=== PATIENT | female | born 1995 | race Caucasian/White ===

== ENCOUNTER → 2016-11-10 | Outpatient (CLI) | payer MEDICAID ==
[~2016-11-10] MED LIST: CODE-54 PO; DCS100C PO; DOCU-143 PO; HYDR-3729 PO; IBUP-1773 PO; Ibuprofen PO; PREN-115 PO
--- OUTSIDE RECORDS SUMMARY | 2016-11-10 11:06 | XMS REPORT | Continuity of Care Document ---
Author Author [facility] Organization [facility] Address Unknown Phone Unavailable Care Team Providers Care Magneto Repairer Name Role Phone [facility] [place] Insurance Providers Payer Name Policy Number Subscriber Name Relationship [facility] [employer] [id number] Fang Sánchez 19 Self / Same As Patient Advance Directives Directive Response Recorded Date/Time Advance Directives No 09/20/14 1:29am Organ Donor Yes 09/20/14 1:29am Resuscitation Status Full Code 09/20/14 1:29am Problems Medical Problems Problem Onset Date Status Cervical strain Unknown Active Medications Medication Dose Route Sig Days/Qty Instructions Order Date Discontinued Date Status Docusate Sodium 100 Mg PO TWICE A DAY 20 Qty 06/25/14 09/20/14 Discontinued [Ibuprofen] 600 Mg PO EVERY 6 HOURS 30 Qty 06/25/14 09/20/14 Discontinued Acetaminophen/Codeine Phosphate 1-2 Tab PO Q 4-6 HOURS PRN PAIN 20 Qty NEEDED FOR PAIN 06/25/14 09/20/14 Discontinued Social History Social History Problem Response Recorded Date/Time Alcohol Use Denies Use 09/20/2014 1:29am Recreational Drug Use No 09/20/2014 1:29am Recent Foreign Travel No 06/22/2014 8:50pm Recent Infectious Disease Exposure No 06/22/2014 8:50pm Hospitalization with Isolation Denies 06/25/2014 1:41pm Sexually Transmitted Disease No 09/20/2014 1:29am HIV/AIDS No 09/20/2014 1:29am Smoking Status Never a Smoker 09/20/2014 1:29am Query Response Start Date Stop Date Smoking Status Never a Smoker Hospital Discharge Instructions No hospital discharge instructions. Plan of Care No plan of care. Functional Status No functional status results. Allergies, Adverse Reactions, Alerts Allergen Type Severity Reaction Status Last Updated No Known Allergies ([id number]) Allergy Unknown Active 06/22/14 Immunizations Name Given Type Hepatitis B Yes Historical Tetanus Booster (TDap) Less than 5yrs Historical Vital Signs Acute Vital Signs Vital Response Date/Time Temperature (Fahrenheit) 98.4 degrees F (97.6 - 99.5) Temperature (Calculated Celsius) 36.46975 degrees C (36.4 - 37.5) Temperature Source Temporal Pulse Rate (adult) 98 bpm (60 - 90) Respiratory Rate 18 bpm (12 - 24) O2 Sat by Pulse Oximetry 99 % (88 - 100) Blood Pressure 130/70 mm Hg Pain Pain Intensity 7 Height (Feet) 5 feet Height (Inches) 0 inches Height (Calculated Centimeters) 152.426654 cm Weight (Pounds) 140 pounds Weight (Calculated Kilograms) 63.294896 kilograms Calculated BMI 27.34 Results No known relevant diagnostic tests, laboratory data and/or discharge summary. Procedures No known history of procedures. Encounters Encounter Location Date/Time Departed Emergency Room Via [facility] 09/20/14 1:19am Recent Diagnosis
--- NOTE | 2016-11-10 14:15 | Diagnostic Imaging Report ---
OB ultrasound. INDICATION: Dating. FINDINGS: There is an intrauterine with the embryo at 10 weeks and 0 days by size. There is unfortunately no cardiac activity seen compatible with embryo demise. IMPRESSION: Intrauterine with no cardiac activity compatible with embryo demise. The findings were discussed with Dr. Beth by Dr. Hodges at the time of dictation. Dictated by: Dictated on workstation # [id number]
== END ==
LOC: RAD 11:03
PROVIDERS: ATTEND Family Medicine
DX: Z36 Encounter for antenatal screening of mother (principal)
CPT/HCPCS: 76801

== ENCOUNTER 2016-11-11 12:00 | Day surgery (SDC) | payer MEDICAID ==
[~2016-11-11] VITALS: Ht 154.9 cm; Wt 70.3 kg
[~2016-11-11 12:00] MED LIST changes: -DOCU-143 PO; -HYDR-3729 PO; -IBUP-1773 PO; -PREN-115 PO
--- OUTSIDE RECORDS SUMMARY | 2016-11-11 12:05 | XMS REPORT | Continuity of Care Document ---
Author Author [facility] Organization [facility] Address Unknown Phone Unavailable Care Team Providers Care Meat Seafood Associate Name Role Phone [facility] [place] Insurance Providers Payer Name Policy Number Subscriber Name Relationship [facility] [employer] [id number] Fang Sánchez 19 Self / Same As [...] Reaction Status Last Updated No Known Allergies ([id number]) Allergy Unknown Active 06/22/14 Immunizations Name Given Type Hepatitis B Yes Historical Tetanus Booster (TDap) Less than 5yrs Historical Vital Signs Acute Vital Signs Vital Response Date/Time Temperature (Fahrenheit) 98.4 degrees F (97.6 - 99.5) Temperature (Calculated Celsius) 36.19223 degrees C (36.4 - 37.5) Temperature Source Temporal Pulse Rate (adult) 98 bpm (60 - 90) Respiratory Rate 18 bpm (12 - 24) O2 Sat by Pulse Oximetry 99 % (88 - 100) Blood Pressure 130/70 mm Hg Pain Pain Intensity 7 Height (Feet) 5 feet Height (Inches) 0 inches Height (Calculated Centimeters) 152.354457 cm Weight (Pounds) 140 pounds Weight (Calculated Kilograms) 63.756323 kilograms Calculated BMI 27.34 Results No known relevant diagnostic tests, laboratory data and/or discharge summary. Procedures No known history of procedures. Encounters Encounter Location Date/Time Departed Emergency Room Via [facility] 09/20/14 1:19am Recent Diagnosis
--- OUTSIDE RECORDS SUMMARY | 2016-11-11 12:06 | XMS REPORT | Continuity of Care Document ---
Author Author [facility] Organization [facility] Address Unknown Phone Unavailable Care Team Providers Care Trichologist Name Role Phone [facility] [place] Insurance Providers Payer Name Policy Number Subscriber Name Relationship [facility] [employer] [id number] Fang Sánchez 19 Self / Same As [...] Reaction Status Last Updated No Known Allergies ([id number]) Allergy Unknown Active 06/22/14 Immunizations Name Given Type Hepatitis B Yes Historical Tetanus Booster (TDap) Less than 5yrs Historical Vital Signs Acute Vital Signs Vital Response Date/Time Temperature (Fahrenheit) 98.4 degrees F (97.6 - 99.5) Temperature (Calculated Celsius) 36.30963 degrees C (36.4 - 37.5) Temperature Source Temporal Pulse Rate (adult) 98 bpm (60 - 90) Respiratory Rate 18 bpm (12 - 24) O2 Sat by Pulse Oximetry 99 % (88 - 100) Blood Pressure 130/70 mm Hg Pain Pain Intensity 7 Height (Feet) 5 feet Height (Inches) 0 inches Height (Calculated Centimeters) 152.776208 cm Weight (Pounds) 140 pounds Weight (Calculated Kilograms) 63.402359 kilograms Calculated BMI 27.34 Results No known relevant diagnostic tests, laboratory data and/or discharge summary. Procedures No known history of procedures. Encounters Encounter Location Date/Time Departed Emergency Room [facility] 09/20/14 1:19am Recent Diagnosis
[2016-11-11] MEDS ORDERED: LIDOCAINE JELLY 2% (XYLOCAINE) 5 ML TUBE ONE (12:28)
[2016-11-11] MEDS ORDERED: proPOfol 200 MG/20 ML (DIPRIVAN) VIAL IV ONE (12:28)
[2016-11-11] MEDS ORDERED: ONDANSETRON 4 MG/2 ML (SDV) Z0FRAN ONE (12:28)
[2016-11-11] MEDS ORDERED: LIDOCAINE PF 2% 10 ML (XYLOCAINE) AMP ONE (12:28)
[2016-11-11] MEDS ORDERED: ROCURONIUM 50 MG/5 ML (ZEMURON) VIAL IV ONE (12:28)
[2016-11-11] MEDS ORDERED: MIDAZOLAM 2 MG/2 ML (VERSED) VIAL ONE (12:28)
[2016-11-11] MEDS ORDERED: LACTATED RINGERS 1,000 ML IV ONE (12:28)
[2016-11-11] MEDS ORDERED: fentaNYL INJECTION 100 MCG/2 ML AMP ONE (12:29)
[2016-11-11] MEDS ORDERED: DOXYCYCLINE 100 MG (VIBRAMYCIN) TABLET PO ONE (12:30)
[2016-11-11] MEDS: LACTATED RINGERS 1,000 ML IV PRN ×2 (12:32→13:30)
[2016-11-11] MEDS ORDERED: PREN-115 PO (12:34)
[2016-11-11 12:36] VITALS: BP 117/79
--- NOTE | 2016-11-11 13:00 | Progress Note-Pre Operative ---
Pre-Operative Progress Note H&P Reviewed The H&P was reviewed, patient examined and no changes noted. Date H&P Reviewed: Nov 11, 2016 Time H&P Reviewed: 13:00 Pre-Operative Diagnosis: Missed MAXIME YEPEZ MD Nov 11, 2016 13:00
[2016-11-11] MEDS ORDERED: IBUP-1773 PO (13:02)
[2016-11-11] MEDS ORDERED: HYDR-3729 PO (13:02)
[2016-11-11] MEDS ORDERED: DOCU-143 PO (13:02)
[2016-11-11] MEDS ORDERED: D5 LR IV SOLUTION 1,000 ML IV SCH (13:03)
--- NOTE | 2016-11-11 13:03 | Discharge Inst-Women's Service ---
Discharge Inst-Women's Serv Depart Medication/Instructions New, Converted or Re-Newed RX: RX on Chart Final Diagnosis Missed Consults/Follow Up Additional Follow Up: Yes Orders/Referrals [address] Clancy (appt is already made) Activity Activity: Activity as Tolerated Driving Instructions: No Driving for 24 Hours (or while taking narcotic pain medications) NO SMOKING: NO SMOKING Nothing Inside Vagina: No Douching, No [place], No Tampons Diet Discharge Diet: No Restrictions Symptoms to Report to : Bleeding Excessive, Pain Increased, Fever Over 101 Degrees F, Pain/Pressure in Chest, Vaginal Bleeding Increase, Dizziness/Fainting , Nausea/Vomiting, Shortness of Breath For Any Problems or Questions: Contact Your Physician, Go to Emergency Room MAXIME CLANCY MD Nov 11, 2016 13:02
--- NOTE | 2016-11-11 13:07 | OB/GYN Operative Report ---
Operative Report Date of Procedure: November 11, 2016 Preoperative Diagnosis: 21 y/o @ 10wga with missed , Rh+ Postoperative Diagnosis: Same Procedure: Suction dilatation and curettage Surgeon: Maxime Yepez MD Anesthesia: General Estimated Blood Loss: 800 mL Indications for Procedure: This is a 21 y/o G1 who presented to the office at 10wga for consultation for missed , sent by Dr. Beth. Ultrasound dated November 10, 2016 revealed a fetus with no cardiac activity, consistent with 10wga. She was counseled on risks, benefits and alternatives and elected to proceed with the procedure. Findings: Normal appearing external genitalia. Products of conception removed consistent with gestational age. Procedure: The patient was taken to the operating room with IV fluids running. Sequential compression devices were placed on her bilateral lower extremities. General anesthesia was obtained without difficulty. She was positioned in the dorsal lithotomy position with the use of Yellofin stirrups. She was prepped and draped in the typical sterile fashion. The bladder was drained with a straight in-and-out catheterization yielding 100 cc of urine. A speculum was placed in the vagina. A single tooth tenaculum was placed on the anterior lip of the cervix. The cervix was dilated with Henderson dilators to a level of 27 Henderson. A 9mm curved suction curette was inserted into the uterine cavity and activated; products of conception were noted and the curette was slowly removed while turning it gently both clockwise and counterclockwise. This was repeated until no further products of conception were noted. A medium sharp curette was then introduced into the uterine cavity and the uterine cavity was gently curetted in a clockwise, circumferential fashion until a gritty feeling was noted. All instruments were removed from the uterus. Minimal bleeding was noted. The tenaculum was removed and the tenaculum sites were hemostatic. All instruments were removed from the vagina at this point. Instrument counts were correct. The patient was awakened from anesthesia without difficulty. She was taken to recovery in stable condition. Specimens: Products of conception Complications: None Disposition: Home stable MAXIME YEPEZ MD Nov 11, 2016 13:07
[2016-11-11] MEDS ORDERED: KETOROLAC 30 MG/ML VIAL IVP ONE (13:15)
[2016-11-11] MEDS ORDERED: ONDANSETRON 4 MG/2 ML (SDV) Z0FRAN IVP PRN (13:15)
[2016-11-11] MEDS ORDERED: morphine INJ 10 MG/ML 1ML (SYR OR VIAL) ONE (13:35)
[2016-11-11] MEDS ORDERED: KETOROLAC 30 MG/ML VIAL ONE (13:35)
[2016-11-11] MEDS ORDERED: SEVOFLURANE (ULTANE) 15 ML INHAL SOLN ONE (13:55)
[2016-11-11] MEDS ORDERED: morphine INJ 10 MG/ML 1ML (SYR OR VIAL) IVP PRN (14:00)
[2016-11-11] MEDS ORDERED: DOXYCYCLINE 100 MG (VIBRAMYCIN) TABLET PO NR (14:00)
[2016-11-11] MEDS ORDERED: MEPERIDINE (DEMEROL) INJ 50 MG/ML IVP PRN (14:00)
[2016-11-11 14:30] VITALS: BP 112/73
[2016-11-11 15:00] VITALS: BP 107/75
[2016-11-11 15:30] VITALS: BP 107/80
== END 2016-11-11 15:38 | disposition home or self-care (01) ==
LOC: SDC 12:00
PROVIDERS: ATTEND Obstetrics & Gynecology
DX: O02.1 Missed abortion (principal)
CPT/HCPCS: 87081; 88305

== ENCOUNTER → 2017-03-02 | Outpatient (CLI) | payer MEDICAID ==
[~2017-03-02] MED LIST changes: +DOCU-143 PO; +HYDR-3729 PO; +IBUP-1773 PO; +PREN-115 PO
--- NOTE | 2017-03-02 16:07 | Diagnostic Imaging Report ---
First trimester OB ultrasound. INDICATION: Dating. FINDINGS: There is a normal-appearing single intrauterine . An embryo is seen with cardiac activity at 149 beats per minute. The crown-rump length is at 7 weeks and 3 days. EFREN is 10/16/17. The right ovary is 3.3 x 3.4 x 1.8 CM with normal vascularity. The left ovary is obscured by bowel gas. IMPRESSION: Live single intrauterine . Dictated by: Dictated on workstation # [id number]
== END ==
LOC: RAD 15:42
PROVIDERS: ATTEND Family Medicine
DX: Z36 Encounter for antenatal screening of mother (principal); Z3A.01 Less than 8 weeks gestation of pregnancy
CPT/HCPCS: 76801

== ENCOUNTER 2017-05-26 00:18 | Outpatient (CLI) | payer MEDICAID ==
[~2017-05-26] VITALS: Ht 152.4 cm; Wt 77.1 kg
[2017-05-26 00:30] VITALS: BP 132/72
[2017-05-26 00:43] LABS: BILIRUBIN,URINE NEGATIVE (NEGATIVE); KETONES,URINE NEGATIVE (NEGATIVE); LEUKOCYTE ESTERASE ,URINE 1+ (NEGATIVE); NITRITE,URINE NEGATIVE (NEGATIVE); PH,URINE 8 (5-9); PROTEIN,URINE NEGATIVE (NEGATIVE); UROBILINOGEN,URINE NORMAL (NORMAL)
[2017-05-26 01:01] LABS: WBC,URINE RARE /HPF
[2017-05-26 02:30] VITALS: BP 134/60
--- NOTE | 2017-05-26 07:13 | Diagnostic Imaging Report ---
INDICATION: Second trimester bleeding. TECHNIQUE: Multiple, limited real-time grayscale images were obtained of the gravid uterus. CORRELATION STUDY: 03/02/20 FINDINGS: Fetus is currently in a breech presentation. Normal amount of amniotic fluid appears to be present. The placenta is posterior without evidence for previa. No abnormal perigestational fluid collections. cardiac activity 146 beats per minute. IMPRESSION: 1. Posteriorly placenta appears unremarkable. No evidence for previa. No abnormal perigestational fluid collections. Breech presentation noted. A preliminary report was provided by [employer]. Dictated by: Dictated on workstation # [id number]
--- NOTE | 2017-05-29 11:12 | Physician Query-Final Dx ---
RAFAEL SWAIN 05/29/17 1112: Clinic Account Progress/Dx Physician Query: Please give diagnosis Date of Service May 26, 2017 at 00:18 JESÚS GERARDO MD 06/19/17 1317: Clinic Account Progress/Dx DIAGNOSIS: Diagnosis Vaginal bleeding during Abdominal pain RAFAEL SWAIN May 29, 2017 11:12 JESÚS GERARDO MD Jun 19, 2017 13:17
== END 2017-05-26 03:28 ==
LOC: WSo 00:18 → LDRP 00:18 → WSo 03:28
PROVIDERS: ATTEND Family Medicine
DX: O20.9 Hemorrhage in early pregnancy, unspecified (principal); Z3A.19 19 weeks gestation of pregnancy
CPT/HCPCS: 76815; 81000; 99213

== ENCOUNTER → 2017-06-01 | Outpatient (CLI) | payer MEDICAID ==
--- NOTE | 2017-06-01 12:55 | Diagnostic Imaging Report ---
INDICATION: survey. TECHNIQUE: Multiple real-time grayscale images were obtained over the gravid uterus. COMPARISON: None 03/02/2017 and 05/26/2017. FINDINGS: The previous OB ultrasound exam of 05/26/2017 noted a single live fetus approximately 19 weeks 4 days gestation in breech presentation. On this exam, the fetus is again identified. The fetus is in variable presentation. heart motion was noted at rate of 143 BPM was recorded. There were no abnormalities identified but the spine and four-chamber heart view were less than optimal due to lie. I would recommend that a short-term (4-6 week) followup exam be performed for further study. The placenta is posterior and there is no previa. The amniotic fluid volume is within normal limits. The growth parameters are fairly uniform and have progressed as expected since the initial exam of 03/02/2017. The cervix was identified and measures 5 cm in length. IMPRESSION: 1. There is a single live fetus approximately 20 weeks 2 days gestation +/- 1 week. The EDC remains October 16, 2017. 2. There were no abnormalities identified but the spine and four-chamber heart view were poorly imaged. Recommendations as above. 3. The growth parameters have progressed as expected since the prior exam. Biometrical measurements are as follows: Biparietal 4.87 cm, age 20 weeks 6 days. Head circumference 17.73 cm, age 20 weeks 2 days. Abdominal circumference 16.4 cm, age 21 weeks 4 days. Femur length 3.32 cm, age 20 weeks 3 days. Sonographic estimate age: 20 weeks 6 days. Sonographic estimated date of delivery: 10/13/2017. Estimated Weight: 384 gm (+/- 56 gm). LMP percentile: 71%. heart rate: 143 beats per minute. number: 1 of 1. Dictated by: Dictated on workstation # [id number]
== END ==
LOC: RAD 11:32
PROVIDERS: ATTEND Family Medicine
DX: Z36 Encounter for antenatal screening of mother (principal); Z3A.20 20 weeks gestation of pregnancy
CPT/HCPCS: 76805

== ENCOUNTER → 2017-07-04 | Outpatient (CLI) | payer MEDICAID ==
--- NOTE | 2017-07-04 11:23 | Diagnostic Imaging Report ---
INDICATION: Followup four-chamber view and spine. TECHNIQUE: Multiple real-time grayscale images were obtained over the gravid uterus. COMPARISON: 06/01/2017 FINDINGS: The heart rate is 139 beats per minute. The cervix is 4.3 cm in length and appears closed. The placenta is posterior. No placenta previa. The four-chamber view and the spine appear unremarkable. IMPRESSION: The four-chamber view and the spine appear unremarkable. Completed survey. Dictated by: Dictated on workstation # [id number]
== END ==
LOC: RAD 09:37
PROVIDERS: ATTEND Family Medicine
DX: Z36 Encounter for antenatal screening of mother (principal); Z3A.00 Weeks of gestation of pregnancy not specified
CPT/HCPCS: 76816

== ENCOUNTER 2017-10-05 23:15 | Outpatient (CLI) | payer MEDICAID ==
[~2017-10-05] VITALS: Ht 152.4 cm; Wt 84.4 kg
[2017-10-05 23:27] VITALS: BP 131/90
[2017-10-05 23:52] LABS: BILIRUBIN,URINE NEGATIVE (NEGATIVE); CLARITY,URINE SLIGHTLY CLOUDY; COLOR,URINE YELLOW; GLUCOSE, URINE (UA) NEGATIVE (NEGATIVE); KETONES,URINE NEGATIVE (NEGATIVE); LEUKOCYTE ESTERASE ,URINE 3+ (NEGATIVE); NITRITE,URINE NEGATIVE (NEGATIVE); PH,URINE 6 (5-9); PROTEIN,URINE 1+ (NEGATIVE); UROBILINOGEN,URINE NORMAL (NORMAL)
[2017-10-05] MEDS ORDERED: FERR-84 PO (23:52)
[2017-10-06 00:10] LABS: BACTERIA,URINE LARGE /HPF; WBC,URINE 50-100 /HPF
--- NOTE | 2017-10-12 15:06 | Physician Query-Final Dx ---
RAFAEL SWAIN 10/12/17 1506: Clinic Account Progress/Dx Physician Query: Please give diagnosis Date of Service Oct 05, 2017 at 23:15 KAELYN GUTIERREZ MD 10/18/17 0733: Clinic Account Progress/Dx DIAGNOSIS: Diagnosis 1. Uterine irritability, nonlabor 2. Intrauterine at 38 weeks RAFAEL SWAIN Oct 12, 2017 15:06 KAELYN GUTIERREZ MD Oct 18, 2017 07:33
== END 2017-10-06 01:55 | disposition home or self-care (01) ==
LOC: WSo 23:15 → LDRP 23:16 → WSo 10-06 01:55
PROVIDERS: ATTEND Family Medicine
DX: O99.89 Other specified diseases and conditions complicating pregnancy, childbirth and the puerperium (principal); N85.8 Other specified noninflammatory disorders of uterus; Z3A.38 38 weeks gestation of pregnancy
CPT/HCPCS: 81000; 87088; 99214

== ENCOUNTER 2017-10-08 18:39 | Outpatient (CLI) | payer MEDICAID ==
[~2017-10-08] VITALS: Ht 152.4 cm; Wt 85.4 kg
[~2017-10-08 18:39] MED LIST changes: +FERR-84 PO
[2017-10-08 18:51] VITALS: BP 133/87
[2017-10-08 19:11] LABS: BILIRUBIN,URINE NEGATIVE (NEGATIVE); CLARITY,URINE SLIGHTLY CLOUDY; COLOR,URINE YELLOW; GLUCOSE, URINE (UA) NEGATIVE (NEGATIVE); KETONES,URINE NEGATIVE (NEGATIVE); LEUKOCYTE ESTERASE ,URINE 3+ (NEGATIVE); NITRITE,URINE NEGATIVE (NEGATIVE); PH,URINE 6 (5-9); PROTEIN,URINE 1+ (NEGATIVE); UROBILINOGEN,URINE NORMAL (NORMAL)
[2017-10-08 19:46] LABS: BACTERIA,URINE LARGE /HPF; WBC,URINE TNTC /HPF
[2017-10-08 19:47] LABS: URINE OTHER FEW SPERM /HPF
[2017-10-08] MEDS ORDERED: cefTRIAXone 1 GM (ROCEPHIN) VIAL IM ONE (21:00)
[2017-10-08] MEDS ORDERED: LIDOCAINE 1% INJ 20 ML (XYLOCAINE) VIAL INJ ONE (21:00)
--- NOTE | 2017-10-12 15:36 | Physician Query-Final Dx ---
RAFAEL SWAIN 10/12/17 1536: Clinic Account Progress/Dx Physician Query: Please give diagnosis Date of Service Oct 08, 2017 at 18:39 BULMARO RUFFIN DO 10/12/17 1717: Clinic Account Progress/Dx DIAGNOSIS: Diagnosis Threatened Term Labor RAFAEL SWAIN Oct 12, 2017 15:36 BULMARO RUFFIN DO Oct 12, 2017 17:17
== END 2017-10-08 21:52 | disposition home or self-care (01) ==
LOC: LDRP 18:39 → WSo 18:39
PROVIDERS: ATTEND Family Medicine
DX: O47.1 False labor at or after 37 completed weeks of gestation (principal); Z3A.38 38 weeks gestation of pregnancy
CPT/HCPCS: 81000; 87088; 96372; 99214

== ENCOUNTER 2017-10-11 05:56 | Inpatient (IN) | payer MEDICAID ==
[~2017-10-11] VITALS: Ht 152.4 cm; Wt 85.3 kg
[2017-10-11] VITALS (41 sets, daily range): BP systolic 91–152; BP diastolic 51–99
--- OUTSIDE RECORDS SUMMARY | 2017-10-11 05:59 | XMS REPORT ---
Author Author SARMAD FLOYD [facility] Address [address] [place] [address] Care Team Providers Care Loader Name Role Phone MARIELLE FLOYDHANY Unavailable PROBLEMS Type Condition ICD9-CM Code QQI46-JG Code Onset Dates Condition Status SNOMED Code Problem Obesity E66.9 Active 276662112 Assessment Encounter for IUD removal Z30.432 Jun, Active 666720609 Assessment Presence of (intrauterine) contraceptive device Z97.5 Jun, Active 555262147 Assessment Procedure and treatment not carried out for other reasons Z53.8 Jun, Active 696859984 ALLERGIES Substance Reaction Event Type Date Status N.K.D.A. Unknown Non Drug Allergy Jun, Unknown SOCIAL HISTORY No smoking Hx information available PLAN OF CARE VITAL SIGNS Height 60 in 2016-07-01 Weight 145.1 lbs 2016-07-01 Heart Rate 88 bpm 2016-07-01 Respiratory Rate 16 2016-07-01 BMI 28.33 kg/m2 2016-07-01 Blood pressure systolic 110 mmHg 2016-07-01 Blood pressure diastolic 70 mmHg 2016-07-01 MEDICATIONS Medication Instructions Dosage Frequency Start Date End Date Duration Status Ortho Tri-Cyclen (28) 0.18/0.215/0.25 MG-35 MCG Orally Once a day 1 tablet 24h Jun, 28 day(s) Active RESULTS Name Result Date Reference Range TEST, URINE (IN HOUSE) 2016-07-01 RESULTS negative Lot # [id number] Control + Exp date 12/2017 Ultrasound : Pelvic, COMPLETE (REFLEX CPT-22020) 2016-07-07 PROCEDURES Procedure Date Ordered Related Diagnosis Body Site URINE TEST Jul 01, 2016 Office Visit, Est Pt., Level 3 Jul 01, 2016 IMMUNIZATIONS No Known Immunizations
--- OUTSIDE RECORDS SUMMARY | 2017-10-11 05:59 | XMS REPORT ---
Author RONI Muller Organization [employer] Address Unknown Phone Unavailable Care Team Providers Care Herbarium Worker Name Role Phone RONI JEAN CP Unavailable Allergies No Known Allergies Problems Problem Type Condition Code Onset Dates Condition Status Problem Obesity E66.9 Active Medications No Known Medications Results No Known Results Summary Purpose [employer] Submission
--- OUTSIDE RECORDS SUMMARY | 2017-10-11 06:00 | XMS REPORT ---
Author SARMAD Meza [facility] [employer] Address Unknown Phone Unavailable Care Team Providers Care Radioisotope Production Operator Name Role Phone SARMAD FLOYD CP Unavailable Allergies, Adverse Reactions, Alerts Substance Reaction Event Type N.K.D.A. Info Not Available Non Drug Allergy Problems Problem Type Condition Code Onset Dates Condition Status Assessment Encounter for IUD removal Z30.432 Active Problem Obesity E66.9 Active Medications Medication Code System Code Instructions Start Date End Date Status Dosage Ortho Tri-Cyclen (28) [facility] [id number] 0.18/0.215/0.25 MG-35 MCG Orally Once a day Jul 01, 2016 1 tablet Procedures Procedure Coding System Code Date REMOVE INTRAUTERINE DEVICE CPT-4 27204 Jul 26, 2016 URINE TEST CPT-4 84073 Jul 26, 2016 Vital Signs Date/Time: Jul 26, 2016 Cardiac Monitoring Heart Rate 84 bpm Weight 146.4 lbs Height 60 in BMI 28.59 Index Blood Pressure Diastolic 72 mmHg Blood Pressure Systolic 118 mmHg Results Name Result Date Reference Range Unit Abnormality Flag TEST, URINE (IN HOUSE) ----RESULTS Negative [id number] ----Lot # [id number] ----Control + [id number] ----Exp date [id number] Summary Purpose [employer] Submission
--- OUTSIDE RECORDS SUMMARY | 2017-10-11 06:00 | XMS REPORT ---
Author Author RONI JEAN [facility] Address [address] [place] [address] Care Team Providers Care Teacher Selection Specialist Name Role Phone RONI JEAN Unavailable PROBLEMS Type Condition ICD9-CM Code [id number] Code Onset Dates Condition Status SNOMED Code Problem Obesity E66.9 Active [id number] ALLERGIES Unknown Allergies SOCIAL HISTORY No smoking Hx information available PLAN OF CARE VITAL SIGNS MEDICATIONS Unknown Medications RESULTS Name Result Date Reference Range TEST, URINE (IN HOUSE) 2016-11-01 RESULTS Positive Lot # [id number] Control + Exp date 01/2018 PROCEDURES Procedure Date Ordered Related Diagnosis Body Site URINE TEST Nov 01, 2016 IMMUNIZATIONS No Known Immunizations
--- OUTSIDE RECORDS SUMMARY | 2017-10-11 06:03 | XMS REPORT | Continuity of Care Document ---
Author Author [facility] Organization [facility] Address Unknown Phone Unavailable Allergies Active Description Code Type Severity Reaction Onset Reported/Identified Relationship to Patient Clinical Status Yes No Known Allergies [id number] Drug Allergy Unknown N/A 06/22/2014 Medications There is no data. Problems Date Dx Coded Attending Type Code Diagnosis Diagnosed By 05/28/2008 V70.3 SPORTS/SCHOOL EXAM 05/28/2008 V70.3 SPORTS/SCHOOL EXAM 05/28/2008 V70.3 SPORTS/SCHOOL EXAM 05/28/2008 V70.3 SPORTS/SCHOOL EXAM 05/28/2008 V70.3 SPORTS/SCHOOL EXAM 05/28/2008 KELLE HUBBARD APRN V70.3 SPORTS/SCHOOL EXAM 05/28/2008 TIM SHARMA DIEGO A V70.3 SPORTS/SCHOOL EXAM 05/28/2008 TIM SHARMA DIEGO A V70.3 SPORTS/SCHOOL EXAM 05/28/2008 TIM SHARMA DIEGO A V70.3 SPORTS/SCHOOL EXAM 05/28/2008 JEAN DO, RONI K V70.3 SPORTS/SCHOOL EXAM 05/28/2008 JEAN DO, RONI K V70.3 SPORTS/SCHOOL EXAM 05/28/2008 JEAN DO, RONI K V70.3 SPORTS/SCHOOL EXAM 05/28/2008 JEAN DO, RONI K V70.3 SPORTS/SCHOOL EXAM 05/28/2008 JEAN DO, RONI K V70.3 SPORTS/SCHOOL EXAM 05/28/2008 JEAN DO, RONI K V70.3 SPORTS/SCHOOL EXAM 05/28/2008 MATT ACEVEDO, KAELYN Robertson V70.3 SPORTS/SCHOOL EXAM 05/28/2008 KAELYN GUTIERREZ MD V70.3 SPORTS/SCHOOL EXAM 05/28/2008 MATT ACEVEDO, KAELYN Robertson V70.3 SPORTS/SCHOOL EXAM 05/28/2008 V70.3 SPORTS/SCHOOL EXAM 05/28/2008 MATT ACEVEDO, KAELYN Robertson V70.3 SPORTS/SCHOOL EXAM 05/28/2008 MATT ACEVEDO, KAELYN Robertson V70.3 SPORTS/SCHOOL EXAM 05/28/2008 EVERETT ACEVEDO, SARMAD Horan V70.3 SPORTS/SCHOOL EXAM 05/28/2008 MATT ACEVEDO, KAELYN Robertson V70.3 SPORTS/SCHOOL EXAM 05/28/2008 EVERETT ACEVEDO, SARMAD Horan V70.3 SPORTS/SCHOOL EXAM 05/28/2008 MATT ACEVEDO, KAELYN Robertson V70.3 SPORTS/SCHOOL EXAM 05/28/2008 DIEGO DUMONT APRN V70.3 SPORTS/SCHOOL EXAM 05/28/2008 DIEGO DUMONT APRN A V70.3 SPORTS/SCHOOL EXAM 05/28/2008 DIEGO DUMONT APRN A V70.3 SPORTS/SCHOOL EXAM 05/28/2008 JARRELL BATES APRN V70.3 SPORTS/SCHOOL EXAM 07/24/2008 706.1 ACNE 07/24/2008 919.4 INSECT BITE NONVENOMOUS OF OTHER MULTIPLE AND UNSPECIFIED SITES WITHOUT INFECTION 07/24/2008 706.1 ACNE 07/24/2008 919.4 INSECT BITE NONVENOMOUS OF OTHER MULTIPLE AND UNSPECIFIED SITES WITHOUT INFECTION 07/24/2008 706.1 ACNE 07/24/2008 919.4 INSECT BITE NONVENOMOUS OF OTHER MULTIPLE AND UNSPECIFIED SITES WITHOUT INFECTION 07/24/2008 706.1 ACNE 07/24/2008 919.4 INSECT BITE NONVENOMOUS OF OTHER MULTIPLE AND UNSPECIFIED SITES WITHOUT INFECTION 07/24/2008 706.1 ACNE 07/24/2008 919.4 INSECT BITE NONVENOMOUS OF OTHER MULTIPLE AND UNSPECIFIED SITES WITHOUT INFECTION 07/24/2008 KELLE HUBBARD APRN R 706.1 ACNE 07/24/2008 KELLE HUBBARD APRN R 919.4 INSECT BITE NONVENOMOUS OF OTHER MULTIPLE AND UNSPECIFIED SITES WITHOUT INFECTION 07/24/2008 DIEGO DUMONT APRN A 706.1 ACNE 07/24/2008 DIEGO DUMONT APRN A 919.4 INSECT BITE NONVENOMOUS OF OTHER MULTIPLE AND UNSPECIFIED SITES WITHOUT INFECTION 07/24/2008 DIEGO DUMONT APRN A 706.1 ACNE 07/24/2008 DIEGO DUMONT APRN A 919.4 INSECT BITE NONVENOMOUS OF OTHER MULTIPLE AND UNSPECIFIED SITES WITHOUT INFECTION 07/24/2008 TIM VACUUM PAN OPERATOR, DIEGO A 706.1 ACNE 07/24/2008 TIM SHARMA DIEGO A 919.4 INSECT BITE NONVENOMOUS OF OTHER MULTIPLE AND UNSPECIFIED SITES WITHOUT INFECTION 07/24/2008 JEAN DO, RONI K 706.1 ACNE 07/24/2008 JEAN DO, RONI K 919.4 INSECT BITE NONVENOMOUS OF OTHER MULTIPLE AND UNSPECIFIED SITES WITHOUT INFECTION 07/24/2008 JEAN DO, RONI K 706.1 ACNE 07/24/2008 JEAN DO, RONI K 919.4 INSECT BITE NONVENOMOUS OF OTHER MULTIPLE AND UNSPECIFIED SITES WITHOUT INFECTION 07/24/2008 JEAN DO, RONI K 706.1 ACNE 07/24/2008 JEAN DO, RONI K 919.4 INSECT BITE NONVENOMOUS OF OTHER MULTIPLE AND UNSPECIFIED SITES WITHOUT INFECTION 07/24/2008 JEAN DO, RONI K 706.1 ACNE 07/24/2008 JEAN DO, RONI K 919.4 INSECT BITE NONVENOMOUS OF OTHER MULTIPLE AND UNSPECIFIED SITES WITHOUT INFECTION 07/24/2008 JEAN DO, RONI K 706.1 ACNE 07/24/2008 JEAN DO, RONI K 919.4 INSECT BITE NONVENOMOUS OF OTHER MULTIPLE AND UNSPECIFIED SITES WITHOUT INFECTION 07/24/2008 JEAN DO, RONI K 706.1 ACNE 07/24/2008 JEAN DO, RONI K 919.4 INSECT BITE NONVENOMOUS OF OTHER MULTIPLE AND UNSPECIFIED SITES WITHOUT INFECTION 07/24/2008 KAELYN GUTIERREZ MD 706.1 ACNE 07/24/2008 KAELYN GUTIERREZ MD 919.4 INSECT BITE NONVENOMOUS OF OTHER MULTIPLE AND UNSPECIFIED SITES WITHOUT INFECTION 07/24/2008 KAELYN GUTIERREZ MD6.1 ACNE 07/24/2008 KAELYN GUTIERREZ MD 919.4 INSECT BITE NONVENOMOUS OF OTHER MULTIPLE AND UNSPECIFIED SITES WITHOUT INFECTION 07/24/2008 KAELYN GUTIERREZ MD 706.1 ACNE 07/24/2008 KAELYN GUTIERREZ MD 919.4 INSECT BITE NONVENOMOUS OF OTHER MULTIPLE AND UNSPECIFIED SITES WITHOUT INFECTION 07/24/2008 706.1 ACNE 07/24/2008 919.4 INSECT BITE NONVENOMOUS OF OTHER MULTIPLE AND UNSPECIFIED SITES WITHOUT INFECTION 07/24/2008 KAELYN GUTIERREZ MD 706.1 ACNE 07/24/2008 KAELYN GUTIERREZ MD 919.4 INSECT BITE NONVENOMOUS OF OTHER MULTIPLE AND UNSPECIFIED SITES WITHOUT INFECTION 07/24/2008 KAELYN GUTIERREZ MD 706.1 ACNE 07/24/2008 KAELYN GUTIERREZ MD 919.4 INSECT BITE NONVENOMOUS OF OTHER MULTIPLE AND UNSPECIFIED SITES WITHOUT INFECTION 07/24/2008 SARMAD FLOYD MD N 706.1 ACNE 07/24/2008 SARMAD FLOYD MD N 919.4 INSECT BITE NONVENOMOUS OF OTHER MULTIPLE AND UNSPECIFIED SITES WITHOUT INFECTION 07/24/2008 KAELYN GUTIERREZ MD 706.1 ACNE 07/24/2008 KAELYN GUTIERREZ MD 919.4 INSECT BITE NONVENOMOUS OF OTHER MULTIPLE AND UNSPECIFIED SITES WITHOUT INFECTION 07/24/2008 SARMAD FLOYD MD N 706.1 ACNE 07/24/2008 SARMAD FLOYD MD N 919.4 INSECT BITE NONVENOMOUS OF OTHER MULTIPLE AND UNSPECIFIED SITES WITHOUT INFECTION 07/24/2008 KAELYN GUTIERREZ MD 706.1 ACNE 07/24/2008 KAELYN GUTIERREZ MD 919.4 INSECT BITE NONVENOMOUS OF OTHER MULTIPLE AND UNSPECIFIED SITES WITHOUT INFECTION 07/24/2008 DIEGO DUMONT APRN A 706.1 ACNE 07/24/2008 DIEGO DUMONT APRN A 919.4 INSECT BITE NONVENOMOUS OF OTHER MULTIPLE AND UNSPECIFIED SITES WITHOUT INFECTION 07/24/2008 DIEGO DUMONT APRN A 706.1 ACNE 07/24/2008 DIEGO DUMONT APRN A 919.4 INSECT BITE NONVENOMOUS OF OTHER MULTIPLE AND UNSPECIFIED SITES WITHOUT INFECTION 07/24/2008 DIEGO DUMONT APRN A 706.1 ACNE 07/24/2008 DIEGO DUMONT APRN A 919.4 INSECT BITE NONVENOMOUS OF OTHER MULTIPLE AND UNSPECIFIED SITES WITHOUT INFECTION 07/24/2008 JARRELL BATES APRN 706.1 ACNE 07/24/2008 JARRELL BTAES APRN R 919.4 INSECT BITE NONVENOMOUS OF OTHER MULTIPLE AND UNSPECIFIED SITES WITHOUT INFECTION 11/24/2008 709.9 DERMATOLOGY - NON-INFECTIOUS 11/24/2008 V20.2 Preventive Medicine New Patient Evaluation Childhood 5-11/24/2008 709.9 DERMATOLOGY - NON-INFECTIOUS 11/24/2008 V20.2 Preventive Medicine New Patient Evaluation Childhood -11/24/2008 709.9 DERMATOLOGY - NON-INFECTIOUS 11/24/2008 V20.2 Preventive Medicine New Patient Evaluation Childhood -11/24/2008 709.9 DERMATOLOGY - NON-INFECTIOUS 11/24/2008 V20.2 Preventive Medicine New Patient Evaluation Childhood -11/24/2008 709.9 DERMATOLOGY - NON-INFECTIOUS 11/24/2008 V20.2 Preventive Medicine New Patient Evaluation Childhood -11/24/2008 KELLE HUBBARD APRN R 709.9 DERMATOLOGY - NON-INFECTIOUS 11/24/2008 KELLE HUBBARD APRN R V20.2 Preventive Medicine New Patient Evaluation Childhood -11/24/2008 DIEGO DUMONT APRN A 709.9 DERMATOLOGY - NON-INFECTIOUS 11/24/2008 DIEGO DUMONT APRN A V20.2 Preventive Medicine New Patient Evaluation Childhood -11/24/2008 DIEGO DUMONT APRN A 709.9 DERMATOLOGY - NON-INFECTIOUS 11/24/2008 DIEGO DUMONT APRN A V20.2 Preventive Medicine New Patient Evaluation Childhood -11/24/2008 DIEGO DUMONT APRN A 709.9 DERMATOLOGY - NON-INFECTIOUS 11/24/2008 DIEGO DUMONT APRN A V20.2 Preventive Medicine New Patient Evaluation Childhood -11/24/2008 RONI JEAN DO 709.9 DERMATOLOGY - NON-INFECTIOUS 11/24/2008 RONI JEAN DO V20.2 Preventive Medicine New Patient Evaluation Childhood -11/24/2008 RONI JEAN DO 709.9 DERMATOLOGY - NON-INFECTIOUS 11/24/2008 RONI JEAN DO V20.2 Preventive Medicine New Patient Evaluation Childhood -11/24/2008 JEAN DO, RONI K 709.9 DERMATOLOGY - NON-INFECTIOUS 11/24/2008 JEAN DO, RONI K V20.2 Preventive Medicine New Patient Evaluation Childhood 5-11/24/2008 MIRANDA HARDING, RONI K 709.9 DERMATOLOGY - NON-INFECTIOUS 11/24/2008 MIRANDA HARDING, RONI K V20.2 Preventive Medicine New Patient Evaluation Childhood 5-11/24/2008 MIRANDA HARDING, RONI K 709.9 DERMATOLOGY - NON-INFECTIOUS 11/24/2008 MIRANDA HARDING, RONI K V20.2 Preventive Medicine New Patient Evaluation Childhood 5-11/24/2008 MIRANDA HARDING, RONI K 709.9 DERMATOLOGY - NON-INFECTIOUS 11/24/2008 MIRANDA HARDING, RONI K V20.2 Preventive Medicine New Patient Evaluation Childhood 5-11/24/2008 KAELYN GUTIERREZ MD 709.9 DERMATOLOGY - NON-INFECTIOUS 11/24/2008 KAELYN GUTIERREZ MD V20.2 Preventive Medicine New Patient Evaluation Childhood 5-11/24/2008 KAELYN GUTIERREZ MD 709.9 DERMATOLOGY - NON-INFECTIOUS 11/24/2008 KAELYN GUTIERREZ MD V20.2 Preventive Medicine New Patient Evaluation Childhood 5-11/24/2008 KAELYN GUTIERREZ MD 709.9 DERMATOLOGY - NON-INFECTIOUS 11/24/2008 KAELYN GUTIERREZ MD V20.2 PREVENTIVE MEDICINE NEW PATIENT EVALUATION CHILDHOOD 5-11/24/2008 709.9 DERMATOLOGY - NON-INFECTIOUS 11/24/2008 V20.2 PREVENTIVE MEDICINE NEW PATIENT EVALUATION CHILDHOOD 5-11/24/2008 KAELYN GUTIERREZ MD 709.9 DERMATOLOGY - NON-INFECTIOUS 11/24/2008 KAELYN GUTIERREZ MD V20.2 PREVENTIVE MEDICINE NEW PATIENT EVALUATION CHILDHOOD 5-11/24/2008 KAELYN GUTIERREZ MD 709.9 DERMATOLOGY - NON-INFECTIOUS 11/24/2008 KAELYN GUTIERREZ MD V20.2 PREVENTIVE MEDICINE NEW PATIENT EVALUATION CHILDHOOD 5-11/24/2008 SARMAD FLOYD MD 709.9 DERMATOLOGY - NON-INFECTIOUS 11/24/2008 SARMAD FLOYD MD V20.2 PREVENTIVE MEDICINE NEW PATIENT EVALUATION CHILDHOOD 5-11/24/2008 KAELYN GUTIERREZ MD 709.9 DERMATOLOGY - NON-INFECTIOUS 11/24/2008 KAELYN GUTIERREZ MD V20.2 PREVENTIVE MEDICINE NEW PATIENT EVALUATION CHILDHOOD 5-11/24/2008 SARMAD FLOYD MD N 709.9 DERMATOLOGY - NON-INFECTIOUS 11/24/2008 SARMAD FLOYD MD V20.2 PREVENTIVE MEDICINE NEW PATIENT EVALUATION CHILDHOOD 5-11/24/2008 KAELYN GUTIERREZ MD 709.9 DERMATOLOGY - NON-INFECTIOUS 11/24/2008 KAELYN GUTIERREZ MD V20.2 PREVENTIVE MEDICINE NEW PATIENT EVALUATION CHILDHOOD 5-11/24/2008 DIEGO DUMONT APRN A 709.9 DERMATOLOGY - NON-INFECTIOUS 11/24/2008 DIEGO DUMONT APRN A V20.2 PREVENTIVE MEDICINE NEW PATIENT EVALUATION CHILDHOOD -11/24/2008 DIEGO DUMONT APRN A 709.9 DERMATOLOGY - NON-INFECTIOUS 11/24/2008 DIEGO DUMONT APRN A V20.2 PREVENTIVE MEDICINE NEW PATIENT EVALUATION CHILDHOOD 5-11/24/2008 DIEGO DUMONT APRN A 709.9 DERMATOLOGY - NON-INFECTIOUS 11/24/2008 DIEGO DUMONT APRN A V20.2 PREVENTIVE MEDICINE NEW PATIENT EVALUATION CHILDHOOD -11/24/2008 JARRELL BATES APRN R 709.9 DERMATOLOGY - NON-INFECTIOUS 11/24/2008 JARRELL BATES APRN R V20.2 PREVENTIVE MEDICINE NEW PATIENT EVALUATION CHILDHOOD 5-12/10/2008 311 MO DEPRESSIVE DISORDER NOS 12/10/2008 311 MO DEPRESSIVE DISORDER NOS 12/10/2008 311 MO DEPRESSIVE DISORDER NOS 12/10/2008 311 MO DEPRESSIVE DISORDER NOS 12/10/2008 311 MO DEPRESSIVE DISORDER NOS 12/10/2008 KELLE HUBBARD APRN 311 MO DEPRESSIVE DISORDER NOS 12/10/2008 GORAN DUMONT APRNIDI A 311 MO DEPRESSIVE DISORDER NOS 12/10/2008 DIEGO DUMONT APRN A 311 MO DEPRESSIVE DISORDER NOS 12/10/2008 DIEGO DUMONT APRN A 311 MO DEPRESSIVE DISORDER NOS 12/10/2008 RONI JEAN DO 311 MO DEPRESSIVE DISORDER NOS 12/10/2008 RONI JEAN DO 311 MO DEPRESSIVE DISORDER NOS 12/10/2008 RONI JEAN DO 311 MO DEPRESSIVE DISORDER NOS 12/10/2008 JEAN DO, RONI K 311 MO DEPRESSIVE DISORDER NOS 12/10/2008 JEAN DO, RONI K 311 MO DEPRESSIVE DISORDER NOS 12/10/2008 JEAN DO, RONI K 311 MO DEPRESSIVE DISORDER NOS 12/10/2008 MATT ACEVEDO, KAELYN Robertson 311 MO DEPRESSIVE DISORDER NOS 12/10/2008 KAELYN GUTIERREZ MD 311 MO DEPRESSIVE DISORDER NOS 12/10/2008 KAELYN GUTIERREZ MD 311 MO DEPRESSIVE DISORDER NOS 12/10/2008 311 MO DEPRESSIVE DISORDER NOS 12/10/2008 KAELYN GUTIERREZ MD 311 MO DEPRESSIVE DISORDER NOS 12/10/2008 KAELYN GUTIERREZ MD 311 MO DEPRESSIVE DISORDER NOS 12/10/2008 EVERETT ACEVEDO, SARMAD N 311 MO DEPRESSIVE DISORDER NOS 12/10/2008 KAELYN GUTIERREZ MD 311 MO DEPRESSIVE DISORDER NOS 12/10/2008 SARMAD FLOYD MD N 311 MO DEPRESSIVE DISORDER NOS 12/10/2008 KAELYN GUTIERREZ MD 311 MO DEPRESSIVE DISORDER NOS 12/10/2008 GORAN DUMONT APRNIDI A 311 MO DEPRESSIVE DISORDER NOS 12/10/2008 GORAN DUMONT APRNIDI A 311 MO DEPRESSIVE DISORDER NOS 12/10/2008 GORAN DUMONT APRNIDI A 311 MO DEPRESSIVE DISORDER NOS 12/10/2008 JARRELL BATES APRN 311 MO DEPRESSIVE DISORDER NOS 09/02/2009 465.9 UPPER RESPIRATORY INFECTION ACUTE 09/02/2009 465.9 UPPER RESPIRATORY INFECTION ACUTE 09/02/2009 465.9 UPPER RESPIRATORY INFECTION ACUTE 09/02/2009 465.9 UPPER RESPIRATORY INFECTION ACUTE 09/02/2009 465.9 UPPER RESPIRATORY INFECTION ACUTE 09/02/2009 KELLE HUBBARD APRN 465.9 UPPER RESPIRATORY INFECTION ACUTE 09/02/2009 GORAN DUMONT APRNIDI A 465.9 UPPER RESPIRATORY INFECTION ACUTE 09/02/2009 TIM SHARMA DIEGO A 465.9 UPPER RESPIRATORY INFECTION ACUTE 09/02/2009 GORAN DUMONT APRNIDI A 465.9 UPPER RESPIRATORY INFECTION ACUTE 09/02/2009 JEAN DO, RONI K 465.9 UPPER RESPIRATORY INFECTION ACUTE 09/02/2009 JEAN DO, RONI K 465.9 UPPER RESPIRATORY INFECTION ACUTE 09/02/2009 JEAN DO, RONI K 465.9 UPPER RESPIRATORY INFECTION ACUTE 09/02/2009 JEAN DO, RONI K 465.9 UPPER RESPIRATORY INFECTION ACUTE 09/02/2009 JEAN DO, RONI K 465.9 UPPER RESPIRATORY INFECTION ACUTE 09/02/2009 JEAN DO, RONI K 465.9 UPPER RESPIRATORY INFECTION ACUTE 09/02/2009 KAELYN GUTIERREZ MD 465.9 UPPER RESPIRATORY INFECTION ACUTE 09/02/2009 KAELYN GUTIERREZ MD 465.9 UPPER RESPIRATORY INFECTION ACUTE 09/02/2009 KAELYN GUTIERREZ MD 465.9 UPPER RESPIRATORY INFECTION ACUTE 09/02/2009 465.9 UPPER RESPIRATORY INFECTION ACUTE 09/02/2009 KAELYN GUTIERREZ MD 465.9 UPPER RESPIRATORY INFECTION ACUTE 09/02/2009 KAELYN GUTIERREZ MD 465.9 UPPER RESPIRATORY INFECTION ACUTE 09/02/2009 EVERETT ACEVEDO, SARMAD Horan 465.9 UPPER RESPIRATORY INFECTION ACUTE 09/02/2009 KAELYN GUTIERREZ MD 465.9 UPPER RESPIRATORY INFECTION ACUTE 09/02/2009 EVERETT ACEVEDO, SARMAD Horan 465.9 UPPER RESPIRATORY INFECTION ACUTE 09/02/2009 KAELYN GUTIERREZ MD 465.9 UPPER RESPIRATORY INFECTION ACUTE 09/02/2009 TIM VACUUM PAN OPERATOR, DIEGO A 465.9 UPPER RESPIRATORY INFECTION ACUTE 09/02/2009 TIM VACUUM PAN OPERATOR, DIEGO A 465.9 UPPER RESPIRATORY INFECTION ACUTE 09/02/2009 TIM VACUUM PAN OPERATOR, DIEGO A 465.9 UPPER RESPIRATORY INFECTION ACUTE 09/02/2009 JARRELL BATES APRN R 465.9 UPPER RESPIRATORY INFECTION ACUTE 10/23/2009 486 PNEUMONIA UNSPECIFIED 10/23/2009 486 PNEUMONIA UNSPECIFIED 10/23/2009 486 PNEUMONIA UNSPECIFIED 10/23/2009 486 PNEUMONIA UNSPECIFIED 10/23/2009 486 PNEUMONIA UNSPECIFIED 10/23/2009 KELLE HUBBARD APRN R 486 PNEUMONIA UNSPECIFIED 10/23/2009 TIM VACUUM PAN OPERATOR, DIEGO A 486 PNEUMONIA UNSPECIFIED 10/23/2009 TIM VACUUM PAN OPERATOR, DIEGO A 486 PNEUMONIA UNSPECIFIED 10/23/2009 TIM VACUUM PAN OPERATOR, DIEGO A 486 PNEUMONIA UNSPECIFIED 10/23/2009 JEAN DO, RONI K 486 PNEUMONIA UNSPECIFIED 10/23/2009 JEAN DO, RONI K 486 PNEUMONIA UNSPECIFIED 10/23/2009 JEAN DO, RONI K 486 PNEUMONIA UNSPECIFIED 10/23/2009 JEAN DO, RONI K 486 PNEUMONIA UNSPECIFIED 10/23/2009 JEAN DO, RONI K 486 PNEUMONIA UNSPECIFIED 10/23/2009 JEAN DO, RONI K 486 PNEUMONIA UNSPECIFIED 10/23/2009 MATT ACEVEDO, KAELYN J 486 PNEUMONIA UNSPECIFIED 10/23/2009 MATT ACEVEDO, KAELYN J 486 PNEUMONIA UNSPECIFIED 10/23/2009 MATT ACEVEDO, KAELYN J 486 PNEUMONIA UNSPECIFIED 10/23/2009 486 PNEUMONIA UNSPECIFIED 10/23/2009 MATT ACEVEDO, KAELYN J 486 PNEUMONIA UNSPECIFIED 10/23/2009 MATT ACEVEDO, KAELYN J 486 PNEUMONIA UNSPECIFIED 10/23/2009 EVERETT ACEVEDO, SARMAD N 486 PNEUMONIA UNSPECIFIED 10/23/2009 MATT ACEVEDO, KAELYN J 486 PNEUMONIA UNSPECIFIED 10/23/2009 EVERETT ACEVEDO, SARMAD N 486 PNEUMONIA UNSPECIFIED 10/23/2009 MATT ACEVEDO, KAELYN J 486 PNEUMONIA UNSPECIFIED 10/23/2009 TIM VACUUM PAN OPERATOR, DIEGO A 486 PNEUMONIA UNSPECIFIED 10/23/2009 TIM VACUUM PAN OPERATOR, DIEGO A 486 PNEUMONIA UNSPECIFIED 10/23/2009 TIM VACUUM PAN OPERATOR, DIEGO A 486 PNEUMONIA UNSPECIFIED 10/23/2009 PAULO VACUUM PAN OPERATOR, JARRELL R 486 PNEUMONIA UNSPECIFIED 11/23/2009 V05.3 HEPATITIS VIRAL/ALL 11/23/2009 V05.3 HEPATITIS VIRAL/ALL 11/23/2009 V05.3 HEPATITIS VIRAL/ALL 11/23/2009 V05.3 HEPATITIS VIRAL/ALL 11/23/2009 V05.3 HEPATITIS VIRAL/ALL 11/23/2009 HUBBARD VACUUM PAN OPERATOR, KELLE R V05.3 HEPATITIS VIRAL/ALL 11/23/2009 TIM VACUUM PAN OPERATOR, DIEGO A V05.3 HEPATITIS VIRAL/ALL 11/23/2009 TIM VACUUM PAN OPERATOR, DIEGO A V05.3 HEPATITIS VIRAL/ALL 11/23/2009 TIM VACUUM PAN OPERATOR, DIEGO A V05.3 HEPATITIS VIRAL/ALL 11/23/2009 JEAN DO, RONI K V05.3 HEPATITIS VIRAL/ALL 11/23/2009 JEAN DO, RONI K V05.3 HEPATITIS VIRAL/ALL 11/23/2009 JEAN DO, RONI K V05.3 HEPATITIS VIRAL/ALL 11/23/2009 JEAN DO, RONI K V05.3 HEPATITIS VIRAL/ALL 11/23/2009 JEAN DO, RONI K V05.3 HEPATITIS VIRAL/ALL 11/23/2009 MIRANDA HARDING, RONI K V05.3 HEPATITIS VIRAL/ALL 11/23/2009 MATT ACEVEDO, KAELYN Robretson V05.3 HEPATITIS VIRAL/ALL 11/23/2009 MATT ACEVEDO, KAELYN Robertson V05.3 HEPATITIS VIRAL/ALL 11/23/2009 MATT ACEVEDO, KAELYN Robertson V05.3 HEPATITIS VIRAL/ALL 11/23/2009 V05.3 HEPATITIS VIRAL/ALL 11/23/2009 MATT ACEVEDO, KAELYN Robertson V05.3 HEPATITIS VIRAL/ALL 11/23/2009 MATT ACEVEDO, KAELYN Robertson V05.3 HEPATITIS VIRAL/ALL 11/23/2009 EVERETT ACEVEDO, SARMAD Horan V05.3 HEPATITIS VIRAL/ALL 11/23/2009 MATT ACEVEDO, KAELYN Robertson V05.3 HEPATITIS VIRAL/ALL 11/23/2009 EVERETT ACEVEDO, SARMAD Horan V05.3 HEPATITIS VIRAL/ALL 11/23/2009 MATT ACEVEDO, KAELYN Robertson V05.3 HEPATITIS VIRAL/ALL 11/23/2009 TIM SHARMA, DIEGO A V05.3 HEPATITIS VIRAL/ALL 11/23/2009 TIM VACUUM PAN OPERATOR, DIEGO A V05.3 HEPATITIS VIRAL/ALL 11/23/2009 TIM CONTRERASN, DIEGO A V05.3 HEPATITIS VIRAL/ALL 11/23/2009 JARRELL BATES APRN V05.3 HEPATITIS VIRAL/ALL 05/18/2010 692.9 DERMATITIS CONTACT UNSPECIFIED 05/18/2010 708.9 URTICARIA/ HIVES UNSPEC 05/18/2010 692.9 DERMATITIS CONTACT UNSPECIFIED 05/18/2010 708.9 URTICARIA/ HIVES UNSPEC 05/18/2010 692.9 DERMATITIS CONTACT UNSPECIFIED 05/18/2010 708.9 URTICARIA/ HIVES UNSPEC 05/18/2010 692.9 DERMATITIS CONTACT UNSPECIFIED 05/18/2010 708.9 URTICARIA/ HIVES UNSPEC 05/18/2010 692.9 DERMATITIS CONTACT UNSPECIFIED 05/18/2010 708.9 URTICARIA/ HIVES UNSPEC 05/18/2010 KELLE HUBBARD APRN R 692.9 DERMATITIS CONTACT UNSPECIFIED 05/18/2010 KELLE HUBBARD APRN 708.9 URTICARIA/HIVES UNSPEC 05/18/2010 TIM VACUUM PAN OPERATOR, DIEGO A 692.9 DERMATITIS CONTACT UNSPECIFIED 05/18/2010 TIM VACUUM PAN OPERATOR, DIEGO A 708.9 URTICARIA/HIVES UNSPEC 05/18/2010 TIM VACUUM PAN OPERATOR, DIEGO A 692.9 DERMATITIS CONTACT UNSPECIFIED 05/18/2010 TIM VACUUM PAN OPERATOR, DIEGO A 708.9 URTICARIA/HIVES UNSPEC 05/18/2010 TIM VACUUM PAN OPERATOR, DIEGO A 692.9 DERMATITIS CONTACT UNSPECIFIED 05/18/2010 TIM VACUUM PAN OPERATOR, DIEGO A 708.9 URTICARIA/HIVES UNSPEC 05/18/2010 JEAN DO, RONI K 692.9 DERMATITIS CONTACT UNSPECIFIED 05/18/2010 JEAN DO, RONI K 708.9 URTICARIA/HIVES UNSPEC 05/18/2010 JEAN DO, RONI K 692.9 DERMATITIS CONTACT UNSPECIFIED 05/18/2010 JEAN DO, RONI K 708.9 URTICARIA/HIVES UNSPEC 05/18/2010 JEAN DO, RONI K 692.9 DERMATITIS CONTACT UNSPECIFIED 05/18/2010 JEAN DO, RONI K 708.9 URTICARIA/HIVES UNSPEC 05/18/2010 JEAN DO, RONI K 692.9 DERMATITIS CONTACT UNSPECIFIED 05/18/2010 JEAN DO, RONI K 708.9 URTICARIA/HIVES UNSPEC 05/18/2010 JEAN DO, RONI K 692.9 DERMATITIS CONTACT UNSPECIFIED 05/18/2010 JEAN DO, RONI K 708.9 URTICARIA/HIVES UNSPEC 05/18/2010 JEAN DO, RONI K 692.9 DERMATITIS CONTACT UNSPECIFIED 05/18/2010 JEAN DO, RONI K 708.9 URTICARIA/HIVES UNSPEC 05/18/2010 KAELYN GUTIERREZ MD 692.9 DERMATITIS CONTACT UNSPECIFIED 05/18/2010 KAELYN GUTIERREZ MD 708.9 URTICARIA/HIVES UNSPEC 05/18/2010 KAELYN GUTIERREZ MD 692.9 DERMATITIS CONTACT UNSPECIFIED 05/18/2010 KAELYN GUTIERREZ MD 708.9 URTICARIA/HIVES UNSPEC 05/18/2010 KAELYN GUTIERREZ MD 692.9 DERMATITIS CONTACT UNSPECIFIED 05/18/2010 MATT ACEVEDO, KAELYN Robertson 708.9 URTICARIA/HIVES UNSPEC 05/18/2010 692.9 DERMATITIS CONTACT UNSPECIFIED 05/18/2010 708.9 URTICARIA/ HIVES UNSPEC 05/18/2010 KAELYN GUTIERREZ MD 692.9 DERMATITIS CONTACT UNSPECIFIED 05/18/2010 KAELYN GUTIERREZ MD 708.9 URTICARIA/HIVES UNSPEC 05/18/2010 KAELYN GUTIERREZ MD 692.9 DERMATITIS CONTACT UNSPECIFIED 05/18/2010 KAELYN GUTIERREZ MD 708.9 URTICARIA/HIVES UNSPEC 05/18/2010 SARMAD FLYOD MD N 692.9 DERMATITIS CONTACT UNSPECIFIED 05/18/2010 EVERETT ACEVEDO, SARMAD N 708.9 URTICARIA/HIVES UNSPEC 05/18/2010 KAELYN GUTIERREZ MD 692.9 DERMATITIS CONTACT UNSPECIFIED 05/18/2010 KAELYN GUTIERREZ MD 708.9 URTICARIA/HIVES UNSPEC 05/18/2010 SARMAD FLOYD MD N 692.9 DERMATITIS CONTACT UNSPECIFIED 05/18/2010 SARMAD FLOYD MD N 708.9 URTICARIA/HIVES UNSPEC 05/18/2010 KAELYN GUTIERREZ MD 692.9 DERMATITIS CONTACT UNSPECIFIED 05/18/2010 KAELYN GUTIERREZ MD 708.9 URTICARIA/HIVES UNSPEC 05/18/2010 DIEGO DUMONT APRN A 692.9 DERMATITIS CONTACT UNSPECIFIED 05/18/2010 DIEGO DUMONT APRN A 708.9 URTICARIA/HIVES UNSPEC 05/18/2010 DIEGO DUMONT APRN A 692.9 DERMATITIS CONTACT UNSPECIFIED 05/18/2010 TIMGORAN Horan APRNIDI A 708.9 URTICARIA/HIVES UNSPEC 05/18/2010 TIM APRN, DIEGO A 692.9 DERMATITIS CONTACT UNSPECIFIED 05/18/2010 GORAN DUMONT APRNIDI A 708.9 URTICARIA/HIVES UNSPEC 05/18/2010 JARRELL BATES APRN R 692.9 DERMATITIS CONTACT UNSPECIFIED 05/18/2010 JARRELL BATES APRN R 708.9 URTICARIA/HIVES UNSPEC 06/02/2010 V25.9 UNSPECIFIED CONTRACEPTIVE MANAGEMENT 06/02/2010 V25.9 UNSPECIFIED CONTRACEPTIVE MANAGEMENT 06/02/2010 V25.9 UNSPECIFIED CONTRACEPTIVE MANAGEMENT 06/02/2010 V25.9 UNSPECIFIED CONTRACEPTIVE MANAGEMENT 06/02/2010 V25.9 UNSPECIFIED CONTRACEPTIVE MANAGEMENT 06/02/2010 KELLE HUBBARD APRN R V25.9 UNSPECIFIED CONTRACEPTIVE MANAGEMENT 06/02/2010 TIM VACUUM PAN OPERATOR, DIEGO A V25.9 UNSPECIFIED CONTRACEPTIVE MANAGEMENT 06/02/2010 TIM VACUUM PAN OPERATOR, DIEGO A V25.9 UNSPECIFIED CONTRACEPTIVE MANAGEMENT 06/02/2010 ITM VACUUM PAN OPERATOR, DIEGO A V25.9 UNSPECIFIED CONTRACEPTIVE MANAGEMENT 06/02/2010 JEAN DO, RONI K V25.9 UNSPECIFIED CONTRACEPTIVE MANAGEMENT 06/02/2010 JEAN DO, RONI K V25.9 UNSPECIFIED CONTRACEPTIVE MANAGEMENT 06/02/2010 JEAN DO, RONI K V25.9 UNSPECIFIED CONTRACEPTIVE MANAGEMENT 06/02/2010 JEAN DO, RONI K V25.9 UNSPECIFIED CONTRACEPTIVE MANAGEMENT 06/02/2010 JEAN DO, RONI K V25.9 UNSPECIFIED CONTRACEPTIVE MANAGEMENT 06/02/2010 JEAN DO, RONI K V25.9 UNSPECIFIED CONTRACEPTIVE MANAGEMENT 06/02/2010 KAELYN GUTIERREZ MD V25.9 UNSPECIFIED CONTRACEPTIVE MANAGEMENT 06/02/2010 KAELYN GUTIERREZ MD V25.9 UNSPECIFIED CONTRACEPTIVE MANAGEMENT 06/02/2010 KAELYN GUTIERREZ MD V25.9 UNSPECIFIED CONTRACEPTIVE MANAGEMENT 06/02/2010 V25.9 UNSPECIFIED CONTRACEPTIVE MANAGEMENT 06/02/2010 KAELYN GUTIERREZ MD V25.9 UNSPECIFIED CONTRACEPTIVE MANAGEMENT 06/02/2010 KAELYN GUTIERREZ MD V25.9 UNSPECIFIED CONTRACEPTIVE MANAGEMENT 06/02/2010 SARMAD FLOYD MD V25.9 UNSPECIFIED CONTRACEPTIVE MANAGEMENT 06/02/2010 KAELYN GUTIERREZ MD V25.9 UNSPECIFIED CONTRACEPTIVE MANAGEMENT 06/02/2010 SARMAD FLOYD MD N V25.9 UNSPECIFIED CONTRACEPTIVE MANAGEMENT 06/02/2010 KAELYN GUTIERREZ MD V25.9 UNSPECIFIED CONTRACEPTIVE MANAGEMENT 06/02/2010 TIM VACUUM PAN OPERATOR, DIEGO A V25.9 UNSPECIFIED CONTRACEPTIVE MANAGEMENT 06/02/2010 TIM VACUUM PAN OPERATOR, DIEGO A V25.9 UNSPECIFIED CONTRACEPTIVE MANAGEMENT 06/02/2010 TIM VACUUM PAN OPERATOR, DIEGO A V25.9 UNSPECIFIED CONTRACEPTIVE MANAGEMENT 06/02/2010 PAULO JARRELL SHARMA R V25.9 UNSPECIFIED CONTRACEPTIVE MANAGEMENT 06/03/2010 V25.49 SURVEILLANCE OF OTHER CONTRACEPTIVE METHOD 06/03/2010 V25.49 SURVEILLANCE OF OTHER CONTRACEPTIVE METHOD 06/03/2010 V25.49 SURVEILLANCE OF OTHER CONTRACEPTIVE METHOD 06/03/2010 V25.49 SURVEILLANCE OF OTHER CONTRACEPTIVE METHOD 06/03/2010 V25.49 SURVEILLANCE OF OTHER CONTRACEPTIVE METHOD 06/03/2010 HAYDEE VACUUM PAN OPERATORKELLE Horan R V25.49 SURVEILLANCE OF OTHER CONTRACEPTIVE METHOD 06/03/2010 TIM VACUUM PAN OPERATOR, DIEGO A V25.49 SURVEILLANCE OF OTHER CONTRACEPTIVE METHOD 06/03/2010 TIM VACUUM PAN OPERATOR, DIEGO A V25.49 SURVEILLANCE OF OTHER CONTRACEPTIVE METHOD 06/03/2010 TIM VACUUM PAN OPERATOR, DIEGO A V25.49 SURVEILLANCE OF OTHER CONTRACEPTIVE METHOD 06/03/2010 JEAN DO, RONI K V25.49 SURVEILLANCE OF OTHER CONTRACEPTIVE METHOD 06/03/2010 JEAN DO, RONI K V25.49 SURVEILLANCE OF OTHER CONTRACEPTIVE METHOD 06/03/2010 JEAN DO, RONI K V25.49 SURVEILLANCE OF OTHER CONTRACEPTIVE METHOD 06/03/2010 JEAN DO, RONI K V25.49 SURVEILLANCE OF OTHER CONTRACEPTIVE METHOD 06/03/2010 JEAN DO, RONI K V25.49 SURVEILLANCE OF OTHER CONTRACEPTIVE METHOD 06/03/2010 JEAN DO, RONI K V25.49 SURVEILLANCE OF OTHER CONTRACEPTIVE METHOD 06/03/2010 KAELYN GUTIERREZ MD V25.49 SURVEILLANCE OF OTHER CONTRACEPTIVE METHOD 06/03/2010 KAELYN GUTIERREZ MD V25.49 SURVEILLANCE OF OTHER CONTRACEPTIVE METHOD 06/03/2010 KAELYN GUTIERREZ MD V25.49 SURVEILLANCE OF OTHER CONTRACEPTIVE METHOD 06/03/2010 V25.49 SURVEILLANCE OF OTHER CONTRACEPTIVE METHOD 06/03/2010 KAELYN GUTIERREZ MD V25.49 SURVEILLANCE OF OTHER CONTRACEPTIVE METHOD 06/03/2010 KAELYN GUTIERREZ MD V25.49 SURVEILLANCE OF OTHER CONTRACEPTIVE METHOD 06/03/2010 SARMAD FLOYD MD V25.49 SURVEILLANCE OF OTHER CONTRACEPTIVE METHOD 06/03/2010 KAELYN GUTIERREZ MD V25.49 SURVEILLANCE OF OTHER CONTRACEPTIVE METHOD 06/03/2010 SARMAD FLOYD MD V25.49 SURVEILLANCE OF OTHER CONTRACEPTIVE METHOD 06/03/2010 KAELYN GUTIERREZ MD V25.49 SURVEILLANCE OF OTHER CONTRACEPTIVE METHOD 06/03/2010 TIM CONTRERASMarline DIEGO A V25.49 SURVEILLANCE OF OTHER CONTRACEPTIVE METHOD 06/03/2010 TIM CONTRERASMarline DIEGO A V25.49 SURVEILLANCE OF OTHER CONTRACEPTIVE METHOD 06/03/2010 TIM SHARMA DIEGO A V25.49 SURVEILLANCE OF OTHER CONTRACEPTIVE METHOD 06/03/2010 JARRELL BATES APRN V25.49 SURVEILLANCE OF OTHER CONTRACEPTIVE METHOD 08/26/2010 V72.41 TEST NEGATIVE RESULT 08/26/2010 V72.41 TEST NEGATIVE RESULT 08/26/2010 V72.41 TEST NEGATIVE RESULT 08/26/2010 V72.41 TEST NEGATIVE RESULT 08/26/2010 V72.41 TEST NEGATIVE RESULT 08/26/2010 KELLE HUBBARD APRN V72.41 TEST NEGATIVE RESULT 08/26/2010 TIM CONTRERASMarline DIEGO A V72.41 TEST NEGATIVE RESULT 08/26/2010 TIM CONTRERASMarline DIEGO A V72.41 TEST NEGATIVE RESULT 08/26/2010 TIM CONTRERASMarline DIEGO A V72.41 TEST NEGATIVE RESULT 08/26/2010 JEAN DO, RONI K V72.41 TEST NEGATIVE RESULT 08/26/2010 JEAN DO, RONI K V72.41 TEST NEGATIVE RESULT 08/26/2010 JEAN DO, RONI K V72.41 TEST NEGATIVE RESULT 08/26/2010 JEAN DO, RONI K V72.41 TEST NEGATIVE RESULT 08/26/2010 JEAN DO, RONI K V72.41 TEST NEGATIVE RESULT 08/26/2010 JEAN DO, RONI K V72.41 TEST NEGATIVE RESULT 08/26/2010 KAELYN GUTIERREZ MD V72.41 TEST NEGATIVE RESULT 08/26/2010 KAELYN GUTIERREZ MD V72.41 TEST NEGATIVE RESULT 08/26/2010 KAELYN GUTIERREZ MD V72.41 TEST NEGATIVE RESULT 08/26/2010 V72.41 TEST NEGATIVE RESULT 08/26/2010 KAELYN GUTIERREZ MD V72.41 TEST NEGATIVE RESULT 08/26/2010 KAELYN GUTIERREZ MD V72.41 TEST NEGATIVE RESULT 08/26/2010 SARMAD FLOYD MD V72.41 TEST NEGATIVE RESULT 08/26/2010 KAELYN GUTIERREZ MD V72.41 TEST NEGATIVE RESULT 08/26/2010 SARMAD FLOYD MD V72.41 TEST NEGATIVE RESULT 08/26/2010 KAELYN GUTIERREZ MD V72.41 TEST NEGATIVE RESULT 08/26/2010 DIEGO DUMONT APRN A V72.41 TEST NEGATIVE RESULT 08/26/2010 DIEGO DUMONT APRN A V72.41 TEST NEGATIVE RESULT 08/26/2010 TIMDIEGO MCGUIRE APRN A V72.41 TEST NEGATIVE RESULT 08/26/2010 JARRELL BATES APRN V72.41 TEST NEGATIVE RESULT 10/28/2010 133.0 SCABIES 10/28/2010 698.9 PRURITUS NOS 10/28/2010 133.0 SCABIES 10/28/2010 698.9 PRURITUS NOS 10/28/2010 133.0 SCABIES 10/28/2010 698.9 PRURITUS NOS 10/28/2010 133.0 SCABIES 10/28/2010 698.9 PRURITUS NOS 10/28/2010 133.0 SCABIES 10/28/2010 698.9 PRURITUS NOS 10/28/2010 BETH HUBBARD APRNIA R 133.0 SCABIES 10/28/2010 BETH HUBBARD APRNIA R 698.9 PRURITUS NOS 10/28/2010 TIM VACUUM PAN OPERATOR, DIEGO A 133.0 SCABIES 10/28/2010 TIM VACUUM PAN OPERATOR, DIEGO A 698.9 PRURITUS NOS 10/28/2010 TIM VACUUM PAN OPERATOR, DIEGO A 133.0 SCABIES 10/28/2010 TIM VACUUM PAN OPERATOR, DIEGO A 698.9 PRURITUS NOS 10/28/2010 TIM VACUUM PAN OPERATOR, DIEGO A 133.0 SCABIES 10/28/2010 TIM VACUUM PAN OPERATOR, DIEGO A 698.9 PRURITUS NOS 10/28/2010 JEAN DO, RONI K 133.0 SCABIES 10/28/2010 JEAN DO, RONI K 698.9 PRURITUS NOS 10/28/2010 JEAN DO, RONI K 133.0 SCABIES 10/28/2010 JEAN DO, RONI K 698.9 PRURITUS NOS 10/28/2010 JEAN DO, RONI K 133.0 SCABIES 10/28/2010 JEAN DO, RONI K 698.9 PRURITUS NOS 10/28/2010 JEAN DO, RONI K 133.0 SCABIES 10/28/2010 JEAN DO, RONI K 698.9 PRURITUS NOS 10/28/2010 JEAN DO, RONI K 133.0 SCABIES 10/28/2010 JEAN DO, RONI K 698.9 PRURITUS NOS 10/28/2010 JEAN DO, RONI K 133.0 SCABIES 10/28/2010 JEAN DO, RONI K 698.9 PRURITUS NOS 10/28/2010 KAELYN GUTIREREZ MD 133.0 SCABIES 10/28/2010 KAELYN GUTIERREZ MD 698.9 PRURITUS NOS 10/28/2010 KAELYN GUTIERREZ MD 133.0 SCABIES 10/28/2010 KAELYN GUTIERREZ MD 698.9 PRURITUS NOS 10/28/2010 KAELYN GUTIERREZ MD 133.0 SCABIES 10/28/2010 KAELYN GUTIERREZ MD 698.9 PRURITUS NOS 10/28/2010 133.0 SCABIES 10/28/2010 698.9 PRURITUS NOS 10/28/2010 KAELYN GUTIERREZ MD 133.0 SCABIES 10/28/2010 KAELYN GUTIERREZ MD 698.9 PRURITUS NOS 10/28/2010 KAELYN GUTIERREZ MD 133.0 SCABIES 10/28/2010 KAELYN GUTIERREZ MD 698.9 PRURITUS NOS 10/28/2010 SARMAD FLOYD MD N 133.0 SCABIES 10/28/2010 SARMAD FLOYD MD N 698.9 PRURITUS NOS 10/28/2010 KAELYN GUTIERREZ MD 133.0 SCABIES 10/28/2010 KAELYN GUTIERREZ MD 698.9 PRURITUS NOS 10/28/2010 EVERETT ACEVEDO, SARMAD N 133.0 SCABIES 10/28/2010 SARMAD FLOYD MD N 698.9 PRURITUS NOS 10/28/2010 KAELYN GUTIERREZ MD 133.0 SCABIES 10/28/2010 KAELYN GUTIERREZ MD 698.9 PRURITUS NOS 10/28/2010 TIM VACUUM PAN OPERATOR, DIEGO A 133.0 SCABIES 10/28/2010 TIM VACUUM PAN OPERATOR, DIEGO A 698.9 PRURITUS NOS 10/28/2010 TIM VACUUM PAN OPERATOR, DIEGO A 133.0 SCABIES 10/28/2010 TIM VACUUM PAN OPERATOR, DIEGO A 698.9 PRURITUS NOS 10/28/2010 TIM VACUUM PAN OPERATOR, DIEGO A 133.0 SCABIES 10/28/2010 TIM VACUUM PAN OPERATOR, DIEGO A 698.9 PRURITUS NOS 10/28/2010 PAULO VACUUM PAN OPERATOR, JARRELL R 133.0 SCABIES 10/28/2010 PAULO VACUUM PAN OPERATOR, JARRELL R 698.9 PRURITUS NOS 05/18/2011 780.8 GENERALIZED HYPERHIDROSIS 05/18/2011 780.8 GENERALIZED HYPERHIDROSIS 05/18/2011 780.8 GENERALIZED HYPERHIDROSIS 05/18/2011 780.8 GENERALIZED HYPERHIDROSIS 05/18/2011 780.8 GENERALIZED HYPERHIDROSIS 05/18/2011 HAYDEE VACUUM PAN OPERATORKELLE Horan R 780.8 GENERALIZED HYPERHIDROSIS 05/18/2011 [facility] VACUUM PAN OPERATOR, DIEGO A 780.8 GENERALIZED HYPERHIDROSIS 05/18/2011 [facility] VACUUM PAN OPERATOR, DIEGO A 780.8 GENERALIZED HYPERHIDROSIS 05/18/2011 [facility] VACUUM PAN OPERATOR, DIEGO A 780.8 GENERALIZED HYPERHIDROSIS 05/18/2011 JEAN DO, RONI K 780.8 GENERALIZED HYPERHIDROSIS 05/18/2011 JEAN DO, RONI K 780.8 GENERALIZED HYPERHIDROSIS 05/18/2011 JEAN DO, RONI K 780.8 GENERALIZED HYPERHIDROSIS 05/18/2011 JEAN DO, RONI K 780.8 GENERALIZED HYPERHIDROSIS 05/18/2011 JEAN DO, RONI K 780.8 GENERALIZED HYPERHIDROSIS 05/18/2011 JEAN DO, RONI K 780.8 GENERALIZED HYPERHIDROSIS 05/18/2011 KAELYN GUTIERREZ MD 780.8 GENERALIZED HYPERHIDROSIS 05/18/2011 KAELYN GUTIERREZ MD 780.8 GENERALIZED HYPERHIDROSIS 05/18/2011 KAELYN GUTIERREZ MD 780.8 GENERALIZED HYPERHIDROSIS 05/18/2011 780.8 GENERALIZED HYPERHIDROSIS 05/18/2011 KAELYN GUTIERREZ MD 780.8 GENERALIZED HYPERHIDROSIS 05/18/2011 KAELYN GUTIERREZ MD 780.8 GENERALIZED HYPERHIDROSIS 05/18/2011 SARMAD FLOYD MD 780.8 GENERALIZED HYPERHIDROSIS 05/18/2011 KAELYN GUTIERREZ MD 780.8 GENERALIZED HYPERHIDROSIS 05/18/2011 SARMAD FLOYD MD 780.8 GENERALIZED HYPERHIDROSIS 05/18/2011 KAELYN GUTIERREZ MD 780.8 GENERALIZED HYPERHIDROSIS 05/18/2011 TIM APRN, DIEGO A 780.8 GENERALIZED HYPERHIDROSIS 05/18/2011 TIMMarline SHARMA DIEGO A 780.8 GENERALIZED HYPERHIDROSIS 05/18/2011 TIM SHARMA DIEGO A 780.8 GENERALIZED HYPERHIDROSIS 05/18/2011 LESLIE BATES APRNINA R 780.8 GENERALIZED HYPERHIDROSIS 09/30/2011 461.9 SINUSITIS ACUTE 09/30/2011 461.9 SINUSITIS ACUTE 09/30/2011 461.9 SINUSITIS ACUTE 09/30/2011 461.9 SINUSITIS ACUTE 09/30/2011 461.9 SINUSITIS ACUTE 09/30/2011 KELLE HUBBARD APRN R 461.9 SINUSITIS ACUTE 09/30/2011 TIM APRN, DIEGO A 461.9 SINUSITIS ACUTE 09/30/2011 TIMMarline SHARMA DIEGO A 461.9 SINUSITIS ACUTE 09/30/2011 TIM SHARMA DIEGO A 461.9 SINUSITIS ACUTE 09/30/2011 JEAN DO, RONI K 461.9 SINUSITIS ACUTE 09/30/2011 JEAN DO, RONI K 461.9 SINUSITIS ACUTE 09/30/2011 JEAN DO, RONI K 461.9 SINUSITIS ACUTE 09/30/2011 JEAN DO, RONI K 461.9 SINUSITIS ACUTE 09/30/2011 JEAN DO, RONI K 461.9 SINUSITIS ACUTE 09/30/2011 JEAN DO, RONI K 461.9 SINUSITIS ACUTE 09/30/2011 KAELYN GUTIERREZ MD 461.9 SINUSITIS ACUTE 09/30/2011 KAELYN GUTIERREZ MD 461.9 SINUSITIS ACUTE 09/30/2011 KAELYN GUTIERREZ MD 461.9 SINUSITIS ACUTE 09/30/2011 461.9 SINUSITIS ACUTE 09/30/2011 KAELYN GUTIERREZ MD 461.9 SINUSITIS ACUTE 09/30/2011 KAELYN GUTIERREZ MD 461.9 SINUSITIS ACUTE 09/30/2011 EVERETT ACEVEDO, SARMAD N 461.9 SINUSITIS ACUTE 09/30/2011 KAELYN GUTIERREZ MD 461.9 SINUSITIS ACUTE 09/30/2011 EVERETT ACEVEDO, SARMAD N 461.9 SINUSITIS ACUTE 09/30/2011 KAELYN GUTIERREZ MD 461.9 SINUSITIS ACUTE 09/30/2011 GORAN DUMONT APRNIDI A 461.9 SINUSITIS ACUTE 09/30/2011 GORAN DUMONT APRNIDI A 461.9 SINUSITIS ACUTE 09/30/2011 GORAN DUMONT APRNIDI A 461.9 SINUSITIS ACUTE 09/30/2011 JARRELL BATES APRN 461.9 SINUSITIS ACUTE 11/10/2011 V74.1 TB SCREENING 11/10/2011 V74.1 TB SCREENING 11/10/2011 V74.1 TB SCREENING 11/10/2011 V74.1 TB SCREENING 11/10/2011 V74.1 TB SCREENING 11/10/2011 KELLE HUBBARD APRN V74.1 TB SCREENING 11/10/2011 DIEGO DUMONT APRN A V74.1 TB SCREENING 11/10/2011 GORAN DUMONT APRNIDI A V74.1 TB SCREENING 11/10/2011 TIM SHARMA DIEGO A V74.1 TB SCREENING 11/10/2011 JEAN DO RONI K V74.1 TB SCREENING 11/10/2011 JEAN DO RONI K V74.1 TB SCREENING 11/10/2011 JEAN DO RONI K V74.1 TB SCREENING 11/10/2011 JEAN DO RONI K V74.1 TB SCREENING 11/10/2011 JEAN DO RONI K V74.1 TB SCREENING 11/10/2011 JEAN DO RONI K V74.1 TB SCREENING 11/10/2011 KAELYN GUTIERREZ MD V74.1 TB SCREENING 11/10/2011 KAELYN GUTIERREZ MD V74.1 TB SCREENING 11/10/2011 KAELYN GUTIERREZ MD V74.1 TB SCREENING 11/10/2011 V74.1 TB SCREENING 11/10/2011 KAELYN GUTIERREZ MD V74.1 TB SCREENING 11/10/2011 KAELYN GUTIERREZ MD V74.1 TB SCREENING 11/10/2011 EVERETT ACEVEDO, SARMAD Horan V74.1 TB SCREENING 11/10/2011 KAELYN GUTIERREZ MD V74.1 TB SCREENING 11/10/2011 EVERETT ACEVEDO, SARMAD Horan V74.1 TB SCREENING 11/10/2011 KAELYN GUTIERREZ MD V74.1 TB SCREENING 11/10/2011 DIEGO DUMONT APRN A V74.1 TB SCREENING 11/10/2011 DIEGO DUMONT APRN A V74.1 TB SCREENING 11/10/2011 DIEGO DUMONT APRN A V74.1 TB SCREENING 11/10/2011 JARRELL BATES APRN V74.1 TB SCREENING 11/29/2011 487.1 INFLUENZA 11/29/2011 780.60 FEVER, UNSPECIFIED 11/29/2011 487.1 INFLUENZA 11/29/2011 780.60 FEVER, UNSPECIFIED 11/29/2011 487.1 INFLUENZA 11/29/2011 780.60 FEVER, UNSPECIFIED 11/29/2011 487.1 INFLUENZA 11/29/2011 780.60 FEVER, UNSPECIFIED 11/29/2011 487.1 INFLUENZA 11/29/2011 780.60 FEVER, UNSPECIFIED 11/29/2011 KELLE HUBBARD APRN R 487.1 INFLUENZA 11/29/2011 KELLE HUBBARD APRN R 780.60 FEVER, UNSPECIFIED 11/29/2011 TIM APRN, DIEGO A 487.1 INFLUENZA 11/29/2011 GORAN DUMONT APRNIDI A 780.60 FEVER, UNSPECIFIED 11/29/2011 TIM SHARMA, DIEGO A 487.1 INFLUENZA 11/29/2011 GORAN DUMONT APRNIDI A 780.60 FEVER, UNSPECIFIED 11/29/2011 TIM SHARMA, DIEGO A 487.1 INFLUENZA 11/29/2011 GORAN DUMONT APRNIDI A 780.60 FEVER, UNSPECIFIED 11/29/2011 JEAN DO, RONI K 487.1 INFLUENZA 11/29/2011 JEAN DO, RONI K 780.60 FEVER, UNSPECIFIED 11/29/2011 JEAN DO, RONI K 487.1 INFLUENZA 11/29/2011 JEAN DO, RONI K 780.60 FEVER, UNSPECIFIED 11/29/2011 JEAN DO, RONI K 487.1 INFLUENZA 11/29/2011 JEAN DO, RONI K 780.60 FEVER, UNSPECIFIED 11/29/2011 JEAN DO, RONI K 487.1 INFLUENZA 11/29/2011 JEAN DO, RONI K 780.60 FEVER, UNSPECIFIED 11/29/2011 JEAN DO, RONI K 487.1 INFLUENZA 11/29/2011 JEAN DO, RONI K 780.60 FEVER, UNSPECIFIED 11/29/2011 JEAN DO, RONI K 487.1 INFLUENZA 11/29/2011 JEAN DO, RONI K 780.60 FEVER, UNSPECIFIED 11/29/2011 KAELYN GUTIERREZ MD 487.1 INFLUENZA 11/29/2011 KAELYN GUTIERREZ MD 780.60 FEVER, UNSPECIFIED 11/29/2011 KAELYN GUTIERREZ MD 487.1 INFLUENZA 11/29/2011 KAELYN GUTIERREZ MD 780.60 FEVER, UNSPECIFIED 11/29/2011 KAELYN GUTIERREZ MD 487.1 INFLUENZA 11/29/2011 KAELYN GUTIERREZ MD 780.60 FEVER, UNSPECIFIED 11/29/2011 487.1 INFLUENZA 11/29/2011 780.60 FEVER, UNSPECIFIED 11/29/2011 KAELYN GUTIERREZ MD 487.1 INFLUENZA 11/29/2011 KAELYN GUTIERREZ MD 780.60 FEVER, UNSPECIFIED 11/29/2011 KAELYN GUTIERREZ MD 487.1 INFLUENZA 11/29/2011 KAELYN GUTIERREZ MD 780.60 FEVER, UNSPECIFIED 11/29/2011 SARMAD FLOYD MD 487.1 INFLUENZA 11/29/2011 SARMAD FLOYD MD 780.60 FEVER, UNSPECIFIED 11/29/2011 KAELYN GUTIERREZ MD 487.1 INFLUENZA 11/29/2011 KAELYN GUTIERREZ MD 780.60 FEVER, UNSPECIFIED 11/29/2011 SARMAD FLOYD MD 487.1 INFLUENZA 11/29/2011 EVERETT ACEVEDO, SARMAD N 780.60 FEVER, UNSPECIFIED 11/29/2011 MATT ACEVEDO, KAELYN Robertson 487.1 INFLUENZA 11/29/2011 KAELYN GUTIERREZ MD 780.60 FEVER, UNSPECIFIED 11/29/2011 TIM VACUUM PAN OPERATOR, DIEGO A 487.1 INFLUENZA 11/29/2011 TIM VACUUM PAN OPERATOR, DIEGO A 780.60 FEVER, UNSPECIFIED 11/29/2011 TIM VACUUM PAN OPERATOR, DIEGO A 487.1 INFLUENZA 11/29/2011 TIM VACUUM PAN OPERATOR, DIEGO A 780.60 FEVER, UNSPECIFIED 11/29/2011 TIM APRN, DIEGO A 487.1 INFLUENZA 11/29/2011 TIM SHARMA, DIEGO A 780.60 FEVER, UNSPECIFIED 11/29/2011 PAULO SHARMA, JARRELL R 487.1 INFLUENZA 11/29/2011 PAULO SHARMA, JARRELL R 780.60 FEVER, UNSPECIFIED 12/06/2011 380.10 OTITIS EXTERNA LEFT 12/06/2011 728.85 MUSCLE SPASM 12/06/2011 380.10 OTITIS EXTERNA LEFT 12/06/2011 728.85 MUSCLE SPASM 12/06/2011 380.10 OTITIS EXTERNA LEFT 12/06/2011 728.85 MUSCLE SPASM 12/06/2011 380.10 OTITIS EXTERNA LEFT 12/06/2011 728.85 MUSCLE SPASM 12/06/2011 380.10 OTITIS EXTERNA LEFT 12/06/2011 728.85 MUSCLE SPASM 12/06/2011 KELLE HUBBARD APRN R 380.10 OTITIS EXTERNA LEFT 12/06/2011 KELLE HUBBARD APRN R 728.85 MUSCLE SPASM 12/06/2011 TIMDIEGO Horan APRN A 380.10 OTITIS EXTERNA LEFT 12/06/2011 TIM SHARMA, DIEGO A 728.85 MUSCLE SPASM 12/06/2011 DIEGO DUMONT APRN A 380.10 OTITIS EXTERNA LEFT 12/06/2011 TIM SHARMA DIEGO A 728.85 MUSCLE SPASM 12/06/2011 GORAN DUMONT APRNIDI A 380.10 OTITIS EXTERNA LEFT 12/06/2011 GORAN DUMONT APRNIDI A 728.85 MUSCLE SPASM 12/06/2011 JEAN DO, RONI K 380.10 OTITIS EXTERNA LEFT 12/06/2011 JEAN DO, RONI K 728.85 MUSCLE SPASM 12/06/2011 JEAN DO, RONI K 380.10 OTITIS EXTERNA LEFT 12/06/2011 JEAN DO, RONI K 728.85 MUSCLE SPASM 12/06/2011 JEAN DO, RONI K 380.10 OTITIS EXTERNA LEFT 12/06/2011 JEAN DO, RONI K 728.85 MUSCLE SPASM 12/06/2011 JEAN DO, RONI K 380.10 OTITIS EXTERNA LEFT 12/06/2011 JEAN DO, RONI K 728.85 MUSCLE SPASM 12/06/2011 JEAN DO, RONI K 380.10 OTITIS EXTERNA LEFT 12/06/2011 JEAN DO, RONI K 728.85 MUSCLE SPASM 12/06/2011 JEAN DO, RONI K 380.10 OTITIS EXTERNA LEFT 12/06/2011 JEAN DO, RONI K 728.85 MUSCLE SPASM 12/06/2011 KAELYN GUTIERREZ MD 380.10 OTITIS EXTERNA LEFT 12/06/2011 KAELYN GUTIERREZ MD 728.85 MUSCLE SPASM 12/06/2011 KAELYN GUTIERREZ MD 380.10 OTITIS EXTERNA LEFT 12/06/2011 KAELYN GUTIERREZ MD 728.85 MUSCLE SPASM 12/06/2011 KAELYN GUTIERREZ MD 380.10 OTITIS EXTERNA LEFT 12/06/2011 KAELYN GUTIERREZ MD 728.85 MUSCLE SPASM 12/06/2011 380.10 OTITIS EXTERNA LEFT 12/06/2011 728.85 MUSCLE SPASM 12/06/2011 KAELYN GUTIERREZ MD 380.10 OTITIS EXTERNA LEFT 12/06/2011 KAELYN GUTIERREZ MD 728.85 MUSCLE SPASM 12/06/2011 KAELYN GUTIERREZ MD 380.10 OTITIS EXTERNA LEFT 12/06/2011 KAELYN GUTIERREZ MD 728.85 MUSCLE SPASM 12/06/2011 EVERETT ACEVEDO, SARMAD Horan 380.10 OTITIS EXTERNA LEFT 12/06/2011 SARMAD FLOYD MD 728.85 MUSCLE SPASM 12/06/2011 KAELYN GUTIERREZ MD 380.10 OTITIS EXTERNA LEFT 12/06/2011 KAELYN GUTIERREZ MD 728.85 MUSCLE SPASM 12/06/2011 EVERETT ACEVEDO, SARMAD N 380.10 OTITIS EXTERNA LEFT 12/06/2011 EVERETT ACEVEDO, SARMAD N 728.85 MUSCLE SPASM 12/06/2011 MATT ACEVEDO, KAELYN Robertson 380.10 OTITIS EXTERNA LEFT 12/06/2011 KAELYN GUTIERREZ MD 728.85 MUSCLE SPASM 12/06/2011 TIM VACUUM PAN OPERATOR, DIEGO A 380.10 OTITIS EXTERNA LEFT 12/06/2011 TIM SHARMA, DIEGO A 728.85 MUSCLE SPASM 12/06/2011 TIM SHARMA, DIEGO A 380.10 OTITIS EXTERNA LEFT 12/06/2011 GORAN DUMONT APRNIDI A 728.85 MUSCLE SPASM 12/06/2011 TIM SHARMA, DIEGO A 380.10 OTITIS EXTERNA LEFT 12/06/2011 TIM SHARMA, DIEGO A 728.85 MUSCLE SPASM 12/06/2011 PAULO SHARMA JARRELL R 380.10 OTITIS EXTERNA LEFT 12/06/2011 PAULO SHARMA JARRELL R 728.85 MUSCLE SPASM 03/14/2012 V25.01 CONTRACEPTION - ORAL CONTRACEPTION 03/14/2012 V25.01 CONTRACEPTION - ORAL CONTRACEPTION 03/14/2012 V25.01 CONTRACEPTION - ORAL CONTRACEPTION 03/14/2012 V25.01 CONTRACEPTION - ORAL CONTRACEPTION 03/14/2012 V25.01 CONTRACEPTION - ORAL CONTRACEPTION 03/14/2012 KELLE HUBBARD APRN V25.01 CONTRACEPTION - ORAL CONTRACEPTION 03/14/2012 GORAN DUMONT APRNIDI A V25.01 CONTRACEPTION - ORAL CONTRACEPTION 03/14/2012 TIM SHARMA DIEGO A V25.01 CONTRACEPTION - ORAL CONTRACEPTION 03/14/2012 TIM SHARMA DIEGO A V25.01 CONTRACEPTION - ORAL CONTRACEPTION 03/14/2012 HIMA JEAN DOA K V25.01 CONTRACEPTION - ORAL CONTRACEPTION 03/14/2012 HIMA JEAN DOA K V25.01 CONTRACEPTION - ORAL CONTRACEPTION 03/14/2012 JEAN DO RONI K V25.01 CONTRACEPTION - ORAL CONTRACEPTION 03/14/2012 MIRANDA HARDING RONI K V25.01 CONTRACEPTION - ORAL CONTRACEPTION 03/14/2012 MIRANDA HARDING RONI K V25.01 CONTRACEPTION - ORAL CONTRACEPTION 03/14/2012 JEAN DO, RONI K V25.01 CONTRACEPTION - ORAL CONTRACEPTION 03/14/2012 MATT ACEVEDO, KAELYN Robertson V25.01 CONTRACEPTION - ORAL CONTRACEPTION 03/14/2012 MATT ACEVEDO, KAELYN Robertson V25.01 CONTRACEPTION - ORAL CONTRACEPTION 03/14/2012 MATT ACEVEDO, KAELYN Robertson V25.01 CONTRACEPTION - ORAL CONTRACEPTION 03/14/2012 V25.01 CONTRACEPTION - ORAL CONTRACEPTION 03/14/2012 MATT ACEVEDO, KAELYN Robertson V25.01 CONTRACEPTION - ORAL CONTRACEPTION 03/14/2012 MATT ACEVEDO, KAELYN Robertson V25.01 CONTRACEPTION - ORAL CONTRACEPTION 03/14/2012 EVERETT ACEVEDO, SARMAD Horan V25.01 CONTRACEPTION - ORAL CONTRACEPTION 03/14/2012 KAELYN GUTIERREZ MD V25.01 CONTRACEPTION - ORAL CONTRACEPTION 03/14/2012 EVERETT ACEVEDO, SARMAD Horan V25.01 CONTRACEPTION - ORAL CONTRACEPTION 03/14/2012 MATT ACEVEDO, KAELYN Robertson V25.01 CONTRACEPTION - ORAL CONTRACEPTION 03/14/2012 DIEGO DUMONT APRN A V25.01 CONTRACEPTION - ORAL CONTRACEPTION 03/14/2012 DIEGO DUMONT APRN A V25.01 CONTRACEPTION - ORAL CONTRACEPTION 03/14/2012 DIEGO DUMONT APRN A V25.01 CONTRACEPTION - ORAL CONTRACEPTION 03/14/2012 JARRELL BATES APRN V25.01 CONTRACEPTION - ORAL CONTRACEPTION 06/06/2012 784.0 HEADACHE 06/06/2012 789.09 ABDOMINAL PAIN OTHER SPECIFIED SITE 06/06/2012 784.0 HEADACHE 06/06/2012 789.09 ABDOMINAL PAIN OTHER SPECIFIED SITE 06/06/2012 784.0 HEADACHE 06/06/2012 789.09 ABDOMINAL PAIN OTHER SPECIFIED SITE 06/06/2012 784.0 HEADACHE 06/06/2012 789.09 ABDOMINAL PAIN OTHER SPECIFIED SITE 06/06/2012 784.0 HEADACHE 06/06/2012 789.09 ABDOMINAL PAIN OTHER SPECIFIED SITE 06/06/2012 KELLE HUBBARD APRN 784.0 HEADACHE 06/06/2012 KELLE HUBBARD APRN 789.09 ABDOMINAL PAIN OTHER SPECIFIED SITE 06/06/2012 DIEGO DUMONT APRN A 784.0 HEADACHE 06/06/2012 DIEGO DUMONT APRN 789.09 ABDOMINAL PAIN OTHER SPECIFIED SITE 06/06/2012 GORAN DUMONT APRNIDI A 784.0 HEADACHE 06/06/2012 GORAN DUMONT APRNIDI A 789.09 ABDOMINAL PAIN OTHER SPECIFIED SITE 06/06/2012 GORAN DUMONT APRNIDI A 784.0 HEADACHE 06/06/2012 GORAN DUMONT APRNIDI A 789.09 ABDOMINAL PAIN OTHER SPECIFIED SITE 06/06/2012 JEAN DO, RONI K 784.0 HEADACHE 06/06/2012 JEAN DO, RONI K 789.09 ABDOMINAL PAIN OTHER SPECIFIED SITE 06/06/2012 JEAN DO, RONI K 784.0 HEADACHE 06/06/2012 JEAN DO, RONI K 789.09 ABDOMINAL PAIN OTHER SPECIFIED SITE 06/06/2012 JEAN DO, RONI K 784.0 HEADACHE 06/06/2012 JEAN DO, RONI K 789.09 ABDOMINAL PAIN OTHER SPECIFIED SITE 06/06/2012 JEAN DO, RONI K 784.0 HEADACHE 06/06/2012 JEAN DO, RONI K 789.09 ABDOMINAL PAIN OTHER SPECIFIED SITE 06/06/2012 JEAN DO, RONI K 784.0 HEADACHE 06/06/2012 JEAN DO, RONI K 789.09 ABDOMINAL PAIN OTHER SPECIFIED SITE 06/06/2012 JEAN DO, RONI K 784.0 HEADACHE 06/06/2012 JEAN DO, RONI K 789.09 ABDOMINAL PAIN OTHER SPECIFIED SITE 06/06/2012 KAELYN GUTIERREZ MD 784.0 HEADACHE 06/06/2012 KAELYN GUTIERREZ MD 789.09 ABDOMINAL PAIN OTHER SPECIFIED SITE 06/06/2012 KAELYN GUTIERREZ MD 784.0 HEADACHE 06/06/2012 KAELYN GUTIERREZ MD 789.09 ABDOMINAL PAIN OTHER SPECIFIED SITE 06/06/2012 KAELYN GUTIERREZ MD 784.0 HEADACHE 06/06/2012 KAELYN GUTIERREZ MD 789.09 ABDOMINAL PAIN OTHER SPECIFIED SITE 06/06/2012 784.0 HEADACHE 06/06/2012 789.09 ABDOMINAL PAIN OTHER SPECIFIED SITE 06/06/2012 KAELYN GUTIERREZ MD 784.0 HEADACHE 06/06/2012 KAELYN GUTIERREZ MD 789.09 ABDOMINAL PAIN OTHER SPECIFIED SITE 06/06/2012 KAELYN GUTIERREZ MD 784.0 HEADACHE 06/06/2012 KAELYN GUTIERREZ MD 789.09 ABDOMINAL PAIN OTHER SPECIFIED SITE 06/06/2012 EVERETT ACEVEDO, SARMAD N 784.0 HEADACHE 06/06/2012 SARMAD FLOYD MD N 789.09 ABDOMINAL PAIN OTHER SPECIFIED SITE 06/06/2012 KAELYN GUTIERREZ MD 784.0 HEADACHE 06/06/2012 KAELYN GUTIERREZ MD 789.09 ABDOMINAL PAIN OTHER SPECIFIED SITE 06/06/2012 EVEERTT ACEVEDO, SARMAD N 784.0 HEADACHE 06/06/2012 SARMAD FLOYD MD N 789.09 ABDOMINAL PAIN OTHER SPECIFIED SITE 06/06/2012 KAELYN GUTIERREZ MD 784.0 HEADACHE 06/06/2012 KAELYN GUTIERREZ MD 789.09 ABDOMINAL PAIN OTHER SPECIFIED SITE 06/06/2012 TIM SHARMA, DIEGO A 784.0 HEADACHE 06/06/2012 TIM VACUUM PAN OPERATOR, DIEGO A 789.09 ABDOMINAL PAIN OTHER SPECIFIED SITE 06/06/2012 TIM VACUUM PAN OPERATOR, DIEGO A 784.0 HEADACHE 06/06/2012 TIM VACUUM PAN OPERATOR, DIEGO A 789.09 ABDOMINAL PAIN OTHER SPECIFIED SITE 06/06/2012 TIM VACUUM PAN OPERATOR, DIEGO A 784.0 HEADACHE 06/06/2012 TIM VACUUM PAN OPERATOR, DIEGO A 789.09 ABDOMINAL PAIN OTHER SPECIFIED SITE 06/06/2012 LESLIE BATES APRNINA R 784.0 HEADACHE 06/06/2012 PAULO SHARMA JARRELL R 789.09 ABDOMINAL PAIN OTHER SPECIFIED SITE 08/01/2012 V06.1 TDAP DX 08/01/2012 V06.1 TDAP DX 08/01/2012 V06.1 TDAP DX 08/01/2012 V06.1 TDAP DX 08/01/2012 V06.1 TDAP DX 08/01/2012 KELLE HUBBARD APRN V06.1 TDAP DX 08/01/2012 TIM APRN, DIEGO A V06.1 TDAP DX 08/01/2012 TIM CONTRERASN, DIEGO A V06.1 TDAP DX 08/01/2012 TIM APRN, DIEGO A V06.1 TDAP DX 08/01/2012 JEAN DO, RONI K V06.1 TDAP DX 08/01/2012 JEAN DO, RONI K V06.1 TDAP DX 08/01/2012 JEAN DO, RONI K V06.1 TDAP DX 08/01/2012 JEAN DO, RONI K V06.1 TDAP DX 08/01/2012 JEAN DO, RONI K V06.1 TDAP DX 08/01/2012 JEAN DO, RONI K V06.1 TDAP DX 08/01/2012 MATT ACEVEDO, KAELYN Robertson V06.1 TDAP DX 08/01/2012 MATT ACEVEDO, KAELYN Robertson V06.1 TDAP DX 08/01/2012 MATT ACEVEDO, KAELYN Robertson V06.1 TDAP DX 08/01/2012 V06.1 TDAP DX 08/01/2012 MATT ACEVEDO, KAELYN Robertson V06.1 TDAP DX 08/01/2012 MATT ACEVEDO, KAELYN Robertson V06.1 TDAP DX 08/01/2012 EVERETT ACEVEDO, SARMAD Horan V06.1 TDAP DX 08/01/2012 MATT ACEVEDO, KAELYN Robertson V06.1 TDAP DX 08/01/2012 EVERETT ACEVEDO, SARMAD Horan V06.1 TDAP DX 08/01/2012 MATT ACEVEDO, KAELYN Robertson V06.1 TDAP DX 08/01/2012 DIEGO DUMONT APRN A V06.1 TDAP DX 08/01/2012 DIEGO DUMONT APRN A V06.1 TDAP DX 08/01/2012 DIEGO DUMONT APRN A V06.1 TDAP DX 08/01/2012 JARRELL BATES APRN R V06.1 TDAP DX 11/08/2012 789.07 ABDOMINAL PAIN GENERALIZED 11/08/2012 789.07 ABDOMINAL PAIN GENERALIZED 11/08/2012 789.07 ABDOMINAL PAIN GENERALIZED 11/08/2012 789.07 ABDOMINAL PAIN GENERALIZED 11/08/2012 KELLE HUBBARD APRN 789.07 ABDOMINAL PAIN GENERALIZED 11/08/2012 DIEGO DUMONT APRN A 789.07 ABDOMINAL PAIN GENERALIZED 11/08/2012 DIEGO DUMONT APRN A 789.07 ABDOMINAL PAIN GENERALIZED 11/08/2012 TIM VACUUM PAN OPERATOR, DIEGO A 789.07 ABDOMINAL PAIN GENERALIZED 11/08/2012 JEAN DO, RONI K 789.07 ABDOMINAL PAIN GENERALIZED 11/08/2012 JEAN DO, RONI K 789.07 ABDOMINAL PAIN GENERALIZED 11/08/2012 JEAN DO, RONI K 789.07 ABDOMINAL PAIN GENERALIZED 11/08/2012 JEAN DO, RONI K 789.07 ABDOMINAL PAIN GENERALIZED 11/08/2012 JEAN DO, RONI K 789.07 ABDOMINAL PAIN GENERALIZED 11/08/2012 JEAN DO, RONI K 789.07 ABDOMINAL PAIN GENERALIZED 11/08/2012 MATT ACEVEDO, KAELYN Robertson 789.07 ABDOMINAL PAIN GENERALIZED 11/08/2012 MATT ACEVEDO, KAELYN Robertson 789.07 ABDOMINAL PAIN GENERALIZED 11/08/2012 KAELYN GUTIERREZ MD 789.07 ABDOMINAL PAIN GENERALIZED 11/08/2012 789.07 ABDOMINAL PAIN GENERALIZED 11/08/2012 KAELYN GUTIERREZ MD 789.07 ABDOMINAL PAIN GENERALIZED 11/08/2012 KAELYN GUTIERREZ MD 789.07 ABDOMINAL PAIN GENERALIZED 11/08/2012 SARMAD FLOYD MD 789.07 ABDOMINAL PAIN GENERALIZED 11/08/2012 KAELYN GUTIERREZ MD 789.07 ABDOMINAL PAIN GENERALIZED 11/08/2012 SARMAD FLOYD MD N 789.07 ABDOMINAL PAIN GENERALIZED 11/08/2012 KAELYN GUTIERREZ MD 789.07 ABDOMINAL PAIN GENERALIZED 11/08/2012 DIEGO DUMONT APRN A 789.07 ABDOMINAL PAIN GENERALIZED 11/08/2012 GORAN DUMONT APRNIDI A 789.07 ABDOMINAL PAIN GENERALIZED 11/08/2012 GORAN DUMONT APRNIDI A 789.07 ABDOMINAL PAIN GENERALIZED 11/08/2012 PAULO SHARMA JARRELL R 789.07 ABDOMINAL PAIN GENERALIZED 08/02/2013 ZOEY HUBBARD APRNRICIA R 787.91 DIARRHEA 08/02/2013 ZOEY HUBBARD APRNRICIA R 788.1 DYSURIA 08/02/2013 TIM SHARMA DIEGO A 787.91 DIARRHEA 08/02/2013 TIM SHARMA DIEGO A 788.1 DYSURIA 08/02/2013 TIM SHARMA DIEGO A 787.91 DIARRHEA 08/02/2013 TIM SHARMA DIEGO A 788.1 DYSURIA 08/02/2013 DIEGO DUMONT APRN A 787.91 DIARRHEA 08/02/2013 TIMMarline SHARMA DIEGO A 788.1 DYSURIA 08/02/2013 JEAN DO, RONI K 787.91 DIARRHEA 08/02/2013 JEAN DO, RONI K 788.1 DYSURIA 08/02/2013 JEAN DO, RONI K 787.91 DIARRHEA 08/02/2013 JEAN DO, RONI K 788.1 DYSURIA 08/02/2013 JEAN DO, RONI K 787.91 DIARRHEA 08/02/2013 JEAN DO, RONI K 788.1 DYSURIA 08/02/2013 JEAN DO, RONI K 787.91 DIARRHEA 08/02/2013 JEAN DO, RONI K 788.1 DYSURIA 08/02/2013 JEAN DO, RONI K 787.91 DIARRHEA 08/02/2013 JEAN DO, RONI K 788.1 DYSURIA 08/02/2013 JEAN DO, RONI K 787.91 DIARRHEA 08/02/2013 JEAN DO, RONI K 788.1 DYSURIA 08/02/2013 KAELYN GUTIERREZ MD 787.91 DIARRHEA 08/02/2013 KAELYN GUTIERREZ MD 788.1 DYSURIA 08/02/2013 KAELYN GUTIERREZ MD 787.91 DIARRHEA 08/02/2013 KAELYN GUTIERREZ MD 788.1 DYSURIA 08/02/2013 KAELYN GUTIERREZ MD 787.91 DIARRHEA 08/02/2013 KAELYN GUTIERREZ MD 788.1 DYSURIA 08/02/2013 787.91 DIARRHEA 08/02/2013 788.1 DYSURIA 08/02/2013 KAELYN GUTIERREZ MD 787.91 DIARRHEA 08/02/2013 KAELYN GUTIERREZ MD 788.1 DYSURIA 08/02/2013 KAELYN GUTIERREZ MD 787.91 DIARRHEA 08/02/2013 KAELYN GUTIERREZ MD 788.1 DYSURIA 08/02/2013 SARMAD FLOYD MD 787.91 DIARRHEA 08/02/2013 SARMAD FLOYD MD 788.1 DYSURIA 08/02/2013 KAELYN GUTIERREZ MD 787.91 DIARRHEA 08/02/2013 KAELYN GUTIERREZ MD 788.1 DYSURIA 08/02/2013 EVERETT ACEVEDO, SARMAD N 787.91 DIARRHEA 08/02/2013 SARMAD FLOYD MD N 788.1 DYSURIA 08/02/2013 KAELYN GUTIERREZ MD 787.91 DIARRHEA 08/02/2013 KAELYN GUTIERREZ MD 788.1 DYSURIA 08/02/2013 TIM VACUUM PAN OPERATOR, DIEGO A 787.91 DIARRHEA 08/02/2013 TIM VACUUM PAN OPERATOR, DIEGO A 788.1 DYSURIA 08/02/2013 TIM VACUUM PAN OPERATOR, DIEGO A 787.91 DIARRHEA 08/02/2013 TIM VACUUM PAN OPERATOR, DIEGO A 788.1 DYSURIA 08/02/2013 TIM VACUUM PAN OPERATOR, DIEGO A 787.91 DIARRHEA 08/02/2013 TIM VACUUM PAN OPERATOR, DIEGO A 788.1 DYSURIA 08/02/2013 PAULO VACUUM PAN OPERATOR, JRARELL R 787.91 DIARRHEA 08/02/2013 PAULO VACUUM PAN OPERATOR, JARRELL R 788.1 DYSURIA 10/30/2013 TIM VACUUM PAN OPERATOR, DIEGO A V04.81 FLU SHOT 10/30/2013 TIM APRN, DIEGO A V22.0 , NORMAL FIRST 10/30/2013 TIM SHARMA DIEGO A V04.81 FLU SHOT 10/30/2013 TIM APRN, DIEGO A V22.0 , NORMAL FIRST 10/30/2013 TIM SHARMA DIEGO A V04.81 FLU SHOT 10/30/2013 TIM SHARMA, DIEGO A V22.0 , NORMAL FIRST 10/30/2013 JEAN DO, RONI K V04.81 FLU SHOT 10/30/2013 JEAN DO, RONI K V22.0 , NORMAL FIRST 10/30/2013 JEAN DO, RONI K V04.81 FLU SHOT 10/30/2013 JEAN DO, RONI K V22.0 , NORMAL FIRST 10/30/2013 JEAN DO, RONI K V04.81 FLU SHOT 10/30/2013 JEAN DO, RONI K V22.0 , NORMAL FIRST 10/30/2013 JEAN DO, RONI K V04.81 FLU SHOT 10/30/2013 JEAN DO, RONI K V22.0 , NORMAL FIRST 10/30/2013 JEAN DO, RONI K V04.81 FLU SHOT 10/30/2013 JEAN DO, RONI K V22.0 , NORMAL FIRST 10/30/2013 JEAN DO, RONI K V04.81 FLU SHOT 10/30/2013 JEAN DO, RONI K V22.0 , NORMAL FIRST 10/30/2013 MATT ACEVEDO, KAELYN Robertson V04.81 FLU SHOT 10/30/2013 MATT ACEVEDO, KAELYN Robertson V22.0 , NORMAL FIRST 10/30/2013 MATT ACEVEDO, KAELYN Robertson V04.81 FLU SHOT 10/30/2013 MATT ACEVEDO, KAELYN Robertson V22.0 , NORMAL FIRST 10/30/2013 MATT ACEVEDO, KAELYN Robertson V04.81 FLU SHOT 10/30/2013 KAELYN GUTIERREZ MD V22.0 , NORMAL FIRST 10/30/2013 V04.81 FLU SHOT 10/30/2013 V22.0 , NORMAL FIRST 10/30/2013 MATT ACEVEDO, KAELYN Robertson V04.81 FLU SHOT 10/30/2013 KAELYN GUTIERREZ MD V22.0 , NORMAL FIRST 10/30/2013 MATT ACEEVDO, KAELYN Robertson V04.81 FLU SHOT 10/30/2013 MATT ACEVEDO, KAELYN Robertson V22.0 , NORMAL FIRST 10/30/2013 EVERETT ACEVEDO, SARMAD N V04.81 FLU SHOT 10/30/2013 EVERETT ACEVEDO, SARMAD Horan V22.0 , NORMAL FIRST 10/30/2013 KAELYN GUTIERREZ MD V04.81 FLU SHOT 10/30/2013 KAELYN GUTIERREZ MD V22.0 , NORMAL FIRST 10/30/2013 EVERETT ACEVEDO, SARMAD N V04.81 FLU SHOT 10/30/2013 EVERETT ACEVEDO, SARMAD Horan V22.0 , NORMAL FIRST 10/30/2013 KAELYN GUTIERREZ MD V04.81 FLU SHOT 10/30/2013 KAELYN GUTIERREZ MD V22.0 , NORMAL FIRST 10/30/2013 TIM SHARMA, DIEGO Martin V04.81 FLU SHOT 10/30/2013 TIM VACUUM PAN OPERATOR, DIEGO A V22.0 , NORMAL FIRST 10/30/2013 TIM CONTRERASN, DIEGO A V04.81 FLU SHOT 10/30/2013 TIM CONTRERASN, DIEGO A V22.0 , NORMAL FIRST 10/30/2013 TIM CONTRERASN, DIEGO A V04.81 FLU SHOT 10/30/2013 TIM VACUUM PAN OPERATOR, DIEGO A V22.0 , NORMAL FIRST 10/30/2013 PAULO VACUUM PAN OPERATOR, JARRELL R V04.81 FLU SHOT 10/30/2013 PAULO VACUUM PAN OPERATOR, JARRELL R V22.0 , NORMAL FIRST 11/18/2013 TIM CONTRERASN, DIEGO A 112.1 CANDIDIASIS VAGINAL 11/18/2013 TIM SHARMA, DIEGO A V74.5 STD SCREEN 11/18/2013 TIM SHARMA, DIEGO A 112.1 CANDIDIASIS VAGINAL 11/18/2013 TIM SHARMA, DIEGO A V74.5 STD SCREEN 11/18/2013 JEAN DO, RONI K 112.1 CANDIDIASIS VAGINAL 11/18/2013 JEAN DO, RONI K V74.5 STD SCREEN 11/18/2013 JEAN DO, RONI K 112.1 CANDIDIASIS VAGINAL 11/18/2013 JEAN DO, RONI K V74.5 STD SCREEN 11/18/2013 JEAN DO, RONI K 112.1 CANDIDIASIS VAGINAL 11/18/2013 JEAN DO, RONI K V74.5 STD SCREEN 11/18/2013 JEAN DO, RONI K 112.1 CANDIDIASIS VAGINAL 11/18/2013 JEAN DO, RONI K V74.5 STD SCREEN 11/18/2013 JEAN DO, RONI K 112.1 CANDIDIASIS VAGINAL 11/18/2013 JEAN DO, RONI K V74.5 STD SCREEN 11/18/2013 JEAN DO, RONI K 112.1 CANDIDIASIS VAGINAL 11/18/2013 JEAN DO, RONI K V74.5 STD SCREEN 11/18/2013 KAELYN GUTIERREZ MD 112.1 CANDIDIASIS VAGINAL 11/18/2013 KAELYN GUTIERREZ MD V74.5 STD SCREEN 11/18/2013 KAELYN GUTIERREZ MD 112.1 CANDIDIASIS VAGINAL 11/18/2013 KAELYN GUTIERREZ MD V74.5 STD SCREEN 11/18/2013 KAELYN GUTIERREZ MD 112.1 CANDIDIASIS VAGINAL 11/18/2013 KAELYN GUTIERREZ MD V74.5 STD SCREEN 11/18/2013 112.1 CANDIDIASIS VAGINAL 11/18/2013 V74.5 STD SCREEN 11/18/2013 KAELYN GUTIERREZ MD 112.1 CANDIDIASIS VAGINAL 11/18/2013 KAELYN GUTIERREZ MD V74.5 STD SCREEN 11/18/2013 KAELYN GUTIERREZ MD 112.1 CANDIDIASIS VAGINAL 11/18/2013 KAELYN GUTIERREZ MD V74.5 STD SCREEN 11/18/2013 EVERETT ACEVEDO, SARMAD N 112.1 CANDIDIASIS VAGINAL 11/18/2013 EVERETT ACEVEDO, SARMAD N V74.5 STD SCREEN 11/18/2013 KAELYN GUTIERREZ MD 112.1 CANDIDIASIS VAGINAL 11/18/2013 KAELYN GUTIERREZ MD V74.5 STD SCREEN 11/18/2013 EVERETT ACEVEDO, SARMAD N 112.1 CANDIDIASIS VAGINAL 11/18/2013 EVERETT ACEVEDO, SARMAD N V74.5 STD SCREEN 11/18/2013 KAELYN GUTIERREZ MD 112.1 CANDIDIASIS VAGINAL 11/18/2013 KAELYN GUTIERREZ MD V74.5 STD SCREEN 11/18/2013 TIM APRN, DIEGO A 112.1 CANDIDIASIS VAGINAL 11/18/2013 TIM APRN, DIEGO A V74.5 STD SCREEN 11/18/2013 TIM VACUUM PAN OPERATOR, DIEGO A 112.1 CANDIDIASIS VAGINAL 11/18/2013 TIM VACUUM PAN OPERATOR, DIEGO A V74.5 STD SCREEN 11/18/2013 TIM APRN, DIEGO A 112.1 CANDIDIASIS VAGINAL 11/18/2013 TIM APRN, DIEGO A V74.5 STD SCREEN 11/18/2013 PAULO VACUUM PAN OPERATOR, JARRELL R 112.1 CANDIDIASIS VAGINAL 11/18/2013 PAULO SHARMA, JARRELL R V74.5 STD SCREEN 02/27/2014 KAELYN GUTIERREZ MD Ot V22.1 SUPERVIS OT NORMAL PREG 03/15/2014 RONI JEAN DO 382.9 OTITIS MEDIA 03/15/2014 KAELYN GUTIERREZ MD 382.9 OTITIS MEDIA 03/15/2014 KAELYN GUTIERREZ MD 382.9 OTITIS MEDIA 03/15/2014 KAELYN GUTIERREZ MD 382.9 OTITIS MEDIA 03/15/2014 382.9 OTITIS MEDIA 03/15/2014 KAELYN GUTIERREZ MD 382.9 OTITIS MEDIA 03/15/2014 KAELYN GUTIERREZ MD 382.9 OTITIS MEDIA 03/15/2014 SARMAD FLOYD MD N 382.9 OTITIS MEDIA 03/15/2014 KAELYN GUTIERREZ MD 382.9 OTITIS MEDIA 03/15/2014 SARMAD FLOYD MD N 382.9 OTITIS MEDIA 03/15/2014 KAELYN GUTIERREZ MD 382.9 OTITIS MEDIA 03/15/2014 DIEGO DUMONT APRN A 382.9 OTITIS MEDIA 03/15/2014 DIEGO DUMONT APRN A 382.9 OTITIS MEDIA 03/15/2014 DIEGO DUMONT APRN A 382.9 OTITIS MEDIA 03/15/2014 JARRELL BATES APRN R 382.9 OTITIS MEDIA 06/17/2014 SARMAD FLOYD MD N 796.2 ELEVATED BLOOD PRESSURE READING WITHOUT DIAGNOSIS OF HYPERTENSION 06/17/2014 KEALYN GUTIERREZ MD 796.2 ELEVATED BLOOD PRESSURE READING WITHOUT DIAGNOSIS OF HYPERTENSION 06/17/2014 SARMAD FLOYD MD N 796.2 ELEVATED BLOOD PRESSURE READING WITHOUT DIAGNOSIS OF HYPERTENSION 06/17/2014 KAELYN GUTIERREZ MD 796.2 ELEVATED BLOOD PRESSURE READING WITHOUT DIAGNOSIS OF HYPERTENSION 06/17/2014 DIEGO DUMONT APRN A 796.2 ELEVATED BLOOD PRESSURE READING WITHOUT DIAGNOSIS OF HYPERTENSION 06/17/2014 DIEGO DUMONT APRN A 796.2 ELEVATED BLOOD PRESSURE READING WITHOUT DIAGNOSIS OF HYPERTENSION 06/17/2014 DIEGO DUMONT APRN A 796.2 ELEVATED BLOOD PRESSURE READING WITHOUT DIAGNOSIS OF HYPERTENSION 06/17/2014 LESLIE BATES APRNINA R 796.2 ELEVATED BLOOD PRESSURE READING WITHOUT DIAGNOSIS OF HYPERTENSION 06/25/2014 KAELYN GUTIERREZ MD Ot 648.91 OTH CURR COND-DELIVERED 06/25/2014 KAELYN GUTIERREZ MD Ot 664.21 DEL W 3 DEG LACERAT-DEL 06/25/2014 KAELYN GUTIERREZ MD Ot V02.51 GROUP B STREPT CARRIER/SUSPECTED CARRIER 06/25/2014 KAELYN GUTIERREZ MD Ot V27.0 DELIVER-SINGLE LIVEBORN 07/21/2014 TIM SHARMA, DIEGO A V24.2 F/U, ROUTINE 07/21/2014 DIEGO DUMONT APRN A V25.09 CONTRACEPTIVE COUNSELING - GENERAL 07/21/2014 TIM SHARMA, DIEGO A V24.2 F/U, ROUTINE 07/21/2014 TIM SHARMA, DIEGO A V25.09 CONTRACEPTIVE COUNSELING - GENERAL 07/21/2014 TIM SHARMA, DIEGO A V24.2 F/U, ROUTINE 07/21/2014 TIM SHARMA, DIEGO A V25.09 CONTRACEPTIVE COUNSELING - GENERAL 07/21/2014 JARRELL BATES APRN R V24.2 F/U, ROUTINE 07/21/2014 JARRELL BATES APRN R V25.09 CONTRACEPTIVE COUNSELING - GENERAL 08/04/2014 DIEGO DUMONT APRN A V25.11 IUD INSERTION 08/04/2014 DIEGO DUMONT APRN A V25.11 IUD INSERTION 08/04/2014 JARRELL BATES APRN V25.11 IUD INSERTION 09/15/2014 DIEGO DUMONT APRN A V25.42 CONTRACEPTION SURVEILLANCE (IUD) 09/15/2014 JARRELL BATES APRN R V25.42 CONTRACEPTION SURVEILLANCE (IUD) 09/20/2014 Ot 789.07 09/20/2014 DIEGO DUMONT APRN Ot V22.0 09/20/2014 MATT ACEVEDO, KAELYN Robertson Ot V28.81 09/20/2014 LYNDSAY BONNER DO Ot 847.0 SPRAIN OF NECK 09/20/2014 LYNDSAY BONNER DO Ot 959.09 INJURY OF FACE AND NECK 09/20/2014 LYNDSAY BONNER DO Ot E000.8 OTHER EXTERNAL CAUSE STATUS 09/20/2014 LYNDSAY BONNER DO Ot 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 12/17/2014 JARRELL BATES APRN 787.02 NAUSEA ALONE 12/17/2014 JARRELL ABTES APRN 789.00 ABDOMINAL PAIN UNSPECIFIED SITE 12/29/2014 Ot 789.07 12/29/2014 DIEGO DUMONT APRN Ot V22.0 12/29/2014 MATT ACEVEDO, KAELYN Robertson Ot V28.81 01/13/2015 JARRELL BATES R VACUUM PAN OPERATOR Ot 787.02 01/13/2015 PAULO JARRELL R VACUUM PAN OPERATOR Ot 789.00 03/10/2015 Ot 789.07 03/10/2015 DIEGO DUMONT VACUUM PAN OPERATOR Ot V22.0 03/10/2015 KAELYN GUTIERREZ MD Ot V28.81 03/10/2015 JARRELL BATES R VACUUM PAN OPERATOR Ot 787.02 03/10/2015 LESLIE BATESINA R VACUUM PAN OPERATOR Ot 789.00 04/02/2015 KAELYN GUTIERREZ MD Ot V28.81 12/15/2015 PAULO JARRELL R VACUUM PAN OPERATOR Ot 787.02 12/15/2015 PAULO JARRELL R VACUUM PAN OPERATOR Ot 789.00 07/07/2016 Ot 789.07 ABDOMINAL PAIN, GENERALIZED 07/07/2016 DIEGO DUMONT APRN Ot V22.0 SUPERVIS NORMAL 1ST PREG 07/07/2016 KAELYN GUTIERREZ MD Ot V28.81 ENCOUNTER FOR ANATOMIC SURVEY 07/07/2016 JARRELL BATES R VACUUM PAN OPERATOR Ot 787.02 NAUSEA ALONE 07/07/2016 JARRELL BATES R VACUUM PAN OPERATOR Ot 789.00 ABDOMINAL PAIN, UNSPECIFIED SITE 07/07/2016 EVERETT ACEVEDO, SARMAD Horan Ot Z97.5 PRESENCE OF (INTRAUTERINE) CONTRACEPTIVE 07/07/2016 SARMAD FLOYD MD Ot Z97.5 PRESENCE OF (INTRAUTERINE) CONTRACEPTIVE 07/11/2016 SARMAD FLOYD MD Ot Z97.5 PRESENCE OF (INTRAUTERINE) CONTRACEPTIVE 11/09/2016 Ot 789.07 ABDOMINAL PAIN, GENERALIZED 11/09/2016 DIEGO DUMONT VACUUM PAN OPERATOR Ot V22.0 SUPERVIS NORMAL 1ST PREG 11/09/2016 KAELYN GUTIERREZ MD Ot V28.81 ENCOUNTER FOR ANATOMIC SURVEY 11/09/2016 JARRELL BATES R VACUUM PAN OPERATOR Ot 787.02 NAUSEA ALONE 11/09/2016 JARRELL BATES R VACUUM PAN OPERATOR Ot 789.00 ABDOMINAL PAIN, UNSPECIFIED SITE 11/09/2016 SARMAD FLOYD MD Ot Z97.5 PRESENCE OF (INTRAUTERINE) CONTRACEPTIVE 11/09/2016 Ot 789.07 ABDOMINAL PAIN, GENERALIZED 11/09/2016 DIEGO DUMONT VACUUM PAN OPERATOR Ot V22.0 SUPERVIS NORMAL 1ST PREG 11/09/2016 KAELYN GUTIERREZ MD, Ot V28.81 ENCOUNTER FOR ANATOMIC SURVEY 11/09/2016 JARRELL BATES R VACUUM PAN OPERATOR Ot 787.02 NAUSEA ALONE 11/09/2016 JARRELL BATES R VACUUM PAN OPERATOR Ot 789.00 ABDOMINAL PAIN, UNSPECIFIED SITE 11/09/2016 EVERETT ACEVEDO, SARMAD Horan Ot Z97.5 PRESENCE OF (INTRAUTERINE) CONTRACEPTIVE 11/10/2016 KAELYN GUTIERREZ MD, Ot Z36 ENCOUNTER FOR SCREENING OF MOT 11/11/2016 KAELYN GUTIERREZ MD, Ot Z36 ENCOUNTER FOR SCREENING OF MOT 11/11/2016 KAELYN GUTIERREZ MD, Ot Z36 ENCOUNTER FOR SCREENING OF MOT 11/11/2016 MARLENI ACEVEDO, MAXIME N Ot O02.1 MISSED 11/14/2016 MAXIME YEPEZ MD Ot O02.1 MISSED 11/17/2016 MAXIME YEPEZ MD N Ot O02.1 MISSED 11/17/2016 KAELYN GUTIERREZ MD, Ot Z36 ENCOUNTER FOR SCREENING OF MOT 12/05/2016 KAELYN GUTIERREZ MD, Ot Z36 ENCOUNTER FOR SCREENING OF MOT 03/01/2017 Ot 789.07 ABDOMINAL PAIN, GENERALIZED 03/01/2017 DIEGO DUMONT VACUUM PAN OPERATOR Ot V22.0 SUPERVIS NORMAL 1ST PREG 03/01/2017 KAELYN GUTIERREZ MD Ot V28.81 ENCOUNTER FOR ANATOMIC SURVEY 03/01/2017 JARRELL BATES VACUUM PAN OPERATOR Ot 787.02 NAUSEA ALONE 03/01/2017 JARRELL BATES VACUUM PAN OPERATOR Ot 789.00 ABDOMINAL PAIN, UNSPECIFIED SITE 03/01/2017 SARMAD FLOYD MD Ot Z97.5 PRESENCE OF (INTRAUTERINE) CONTRACEPTIVE 03/01/2017 KAELYN GUTIERREZ MD, Ot Z36 ENCOUNTER FOR SCREENING OF MOT 03/05/2017 KAELYN GUTIERREZ MD, Ot Z36 ENCOUNTER FOR SCREENING OF MOT 03/05/2017 KAELYN GUTIERREZ MD, Ot Z3A.01 LESS THAN 8 WEEKS GESTATION OF 03/16/2017 KAELYN GUTIERREZ MD, Ot Z36 ENCOUNTER FOR SCREENING OF MOT 03/16/2017 KAELYN GUTIERREZ MD, Ot Z3A.01 LESS THAN 8 WEEKS GESTATION OF 05/26/2017 Ot 789.07 ABDOMINAL PAIN, GENERALIZED 05/26/2017 DIEGO DUMONT ZACHARY Ot V22.0 SUPERVIS NORMAL 1ST PREG 05/26/2017 KAELYN GUTIERREZ MD, Ot V28.81 ENCOUNTER FOR ANATOMIC SURVEY 05/26/2017 JARRELL BATES R VACUUM PAN OPERATOR Ot 787.02 NAUSEA ALONE 05/26/2017 JARRELL BATES VACUUM PAN OPERATOR Ot 789.00 ABDOMINAL PAIN, UNSPECIFIED SITE 05/26/2017 EVERETT ACEVEDO, SARMAD Horan Ot Z97.5 PRESENCE OF (INTRAUTERINE) CONTRACEPTIVE 05/26/2017 KAELYN GUTIERREZ MD, Ot Z36 ENCOUNTER FOR SCREENING OF MOT 05/26/2017 KAELYN GUTIERREZ MD, Ot Z36 ENCOUNTER FOR SCREENING OF MOT 05/26/2017 KAELYN GUTIERREZ MD, Ot Z3A.01 LESS THAN 8 WEEKS GESTATION OF 05/26/2017 JESÚS GERARDO MD Ot O20.9 HEMORRHAGE IN EARLY , UNSPECIFI 05/26/2017 JESÚS GERARDO MD Ot Z3A.19 19 WEEKS GESTATION OF 06/02/2017 KAELYN GUTIERREZ MD, Ot Z36 ENCOUNTER FOR SCREENING OF MOT 06/02/2017 KAELYN GUTIERREZ MD, Ot Z3A.20 20 WEEKS GESTATION OF 06/15/2017 KAELYN GUTIERREZ MD, Ot Z36 ENCOUNTER FOR SCREENING OF MOT 06/15/2017 KAELYN GUTIERREZ MD, Ot Z3A.20 20 WEEKS GESTATION OF 07/05/2017 KAELYN GUTIERREZ MD, Ot Z36 ENCOUNTER FOR SCREENING OF MOT 07/05/2017 KEALYN GUTIERREZ MD, Ot Z3A.00 WEEKS OF GESTATION OF NOT SPEC 07/10/2017 KAELYN GUTIERREZ MD, Ot Z36 ENCOUNTER FOR SCREENING OF MOT 07/10/2017 KAELYN GUTIERREZ MD, Ot Z3A.00 WEEKS OF GESTATION OF NOT SPEC 07/18/2017 KAELYN GUTIERREZ MD, Ot Z36 ENCOUNTER FOR SCREENING OF MOT 07/18/2017 KAELYN GUTIERREZ MD, Ot Z3A.00 WEEKS OF GESTATION OF NOT SPEC 08/17/2017 KAELYN GUTIERREZ MD, Ot E86.0 DEHYDRATION 08/17/2017 KAELYN GUTIERREZ MD Ot O99.283 ENDO, NUTRITIONAL AND METAB DISEASES COM 08/17/2017 KAELYN GUTIERREZ MD Ot R10.13 EPIGASTRIC PAIN 08/17/2017 KAELYN GUTIERREZ MD, Ot Z3A.31 31 WEEKS GESTATION OF 08/21/2017 KAELYN GUTIERREZ MD Ot E86.0 DEHYDRATION 08/21/2017 KAELYN GUTIERREZ MD, Ot O99.283 ENDO, NUTRITIONAL AND METAB DISEASES COM 08/21/2017 KAELYN GUTIERREZ MD, Ot R10.13 EPIGASTRIC PAIN 08/21/2017 KAELYN GUTIERREZ MD, Ot Z3A.31 31 WEEKS GESTATION OF Procedures Code Description [place] [address] URINE TEST (IN- HOUSE) 11/08/2012 37413 UA W/ CULTURE IF INDICATED 11/08/2012 90265 ROUTINE VENIPUNCTURE 11/08/2012 13957 US GALLBLADDER 11/08/2012 55656 CMP 11/08/2012 42385 TSH 11/08/2012 16057 CBC 11/08/2012 72545 TB TEST INTRADERMAL 12/17/2012 11629 UA W/ CULTURE IF INDICATED 08/02/2013 08413 US OB - EARLY <14 WEEKS 10/30/2013 04548 TEST, URINE (IN- HOUSE) 10/30/2013 48058 ROUTINE VENIPUNCTURE 11/18/2013 95130 UA OB DIP 11/18/2013 43866 TRICHOMONAS (IN-HOUSE) 11/18/2013 24399 SYPHILLIS-[facility] 11/18/2013 76877 HIV ([facility]) 11/18/2013 62853 ANTIBODY SCREEN (order) 11/18/2013 53171 HEP B SURFACE ANTIGEN (STATE ) 11/18/2013 04998 GC/CHLAM PROBE (STATE) 11/18/2013 88073 CBC 11/18/2013 22112 TSH 11/18/2013 [id number] ANTIBODY SCREEN (RESULT ONLY) 11/19/2013 61326 BLOOD TYPE/Rh FACTOR 11/19/2013 29302 RUBELLA ANTIBODY, IGG 11/19/2013 15997 CULTURE URINE 11/19/2013 48876 CULTURE UROGENITAL 11/20/2013 12952 UA OB DIP 12/18/2013 00077 UA OB DIP 01/15/2014 48863 UA OB DIP 02/12/2014 25980 UA OB DIP 03/12/2014 84662 ROUTINE VENIPUNCTURE 04/02/2014 21711 UA OB DIP 04/02/2014 51801 CBC 04/03/2014 04210 GLUCOSE SAMEER 1 HOUR 04/03/2014 77909 UA OB DIP 04/30/2014 06099 US OB - COMPLETE >14 WEEKS 05/16/2014 94858 UA OB DIP 05/21/2014 45088 CULTURE GROUP B STREP VAG 05/31/2014 48820 UA OB DIP 06/04/2014 02803 UA OB DIP 06/04/2014 42798 UA OB DIP 06/11/2014 20165 ROUTINE VENIPUNCTURE 06/17/2014 26303 UA OB DIP 06/17/2014 93765 CMP 06/17/2014 74725 LDH 06/17/2014 67584 URINE PROTEIN 24 HOUR 06/17/2014 24995 URIC ACID 06/17/2014 16972 CBC 06/17/2014 11349 URINE PROTEIN 24 HOUR 06/19/2014 96.49 OTHER INSTILLATION 06/22/2014 75.62 REPAIR OB LAC RECT/ANUS 06/23/2014 00970 IUD INSERTION 08/04/2014 [id number] LEVONORGESTREL IU CONTRACEPT 08/04/2014 92466 TEST, URINE (IN- HOUSE) 08/04/2014 Valerio Mcmahan 12/24/2014 Results Test Result Range Methicillin resistant Staphylococcus aureus (MRSA) screening culture - 12:12 MRSA SCREEN RESULT MRSA ISOLATED NRG Complete urinalysis with reflex to culture - 05/26/17 00:30 Urine color determination YELLOW NRG Urine clarity determination SLIGHTLY CLOUDY NRG Urine pH measurement by test strip 8 5-9 Specific gravity of urine by test strip 1.010 1.016- 1.022 Urine protein assay by test strip, semi-quantitative NEGATIVE NEGATIVE Urine glucose detection by automated test strip NEGATIVE NEGATIVE Erythrocytes detection in urine sediment by light microscopy NEGATIVE NEGATIVE Urine ketones detection by automated test strip NEGATIVE NEGATIVE Urine nitrite detection by test strip NEGATIVE NEGATIVE Urine total bilirubin detection by test strip NEGATIVE NEGATIVE Urine urobilinogen measurement by automated test strip (mass/volume) NORMAL NORMAL Urine leukocyte esterase detection by dipstick 1+ NEGATIVE Automated urine sediment erythrocyte count by microscopy (number/high power field) NONE NRG Automated urine sediment leukocyte count by microscopy (number/high power field ) RARE NRG Bacteria detection in urine sediment by light microscopy TRACE NRG Squamous epithelial cells detection in urine sediment by light microscopy 10-25 NRG Crystals detection in urine sediment by light microscopy PRESENT NRG Casts detection in urine sediment by light microscopy NONE NRG Mucus detection in urine sediment by light microscopy NEGATIVE NRG Complete urinalysis with reflex to culture NO NRG Amorphous sediment detection in urine sediment by light microscopy MOD JAN PHOSPHATE NRG Complete urinalysis with reflex to culture - 08/16/17 23:25 Urine color determination YELLOW NRG Urine clarity determination SLIGHTLY CLOUDY NRG Urine pH measurement by test strip 6 5-9 Specific gravity of urine by test strip 1.020 1.016- 1.022 Urine protein assay by test strip, semi-quantitative 2+ NEGATIVE Urine glucose detection by automated test strip NEGATIVE NEGATIVE Erythrocytes detection in urine sediment by light microscopy 1+ NEGATIVE Urine ketones detection by automated test strip 1+ NEGATIVE Urine nitrite detection by test strip NEGATIVE NEGATIVE Urine total bilirubin detection by test strip NEGATIVE NEGATIVE Urine urobilinogen measurement by automated test strip (mass/volume) NORMAL NORMAL Urine leukocyte esterase detection by dipstick 3+ NEGATIVE Automated urine sediment erythrocyte count by microscopy (number/high power field) [HPF] NRG Automated urine sediment leukocyte count by microscopy (number/high power field ) [HPF] NRG Bacteria detection in urine sediment by light microscopy MODERATE NRG Squamous epithelial cells detection in urine sediment by light microscopy -25 NRG Crystals detection in urine sediment by light microscopy NONE NRG Casts detection in urine sediment by light microscopy NONE NRG Mucus detection in urine sediment by light microscopy MODERATE NRG Complete urinalysis with reflex to culture YES NRG Bacterial urine culture - 08/16/17 23:25 URINE CULTURE RESULTS 10,000/ML - 100,000/ML NRG Complete urinalysis with reflex to culture - 10/05/17 23:20 Urine color determination YELLOW NRG Urine clarity determination SLIGHTLY CLOUDY NRG Urine pH measurement by test strip 6 5-9 Specific gravity of urine by test strip 1.020 1.016- 1.022 Urine protein assay by test strip, semi-quantitative 1+ NEGATIVE Urine glucose detection by automated test strip NEGATIVE NEGATIVE Erythrocytes detection in urine sediment by light microscopy NEGATIVE NEGATIVE Urine ketones detection by automated test strip NEGATIVE NEGATIVE Urine nitrite detection by test strip NEGATIVE NEGATIVE Urine total bilirubin detection by test strip NEGATIVE NEGATIVE Urine urobilinogen measurement by automated test strip (mass/volume) NORMAL NORMAL Urine leukocyte esterase detection by dipstick 3+ NEGATIVE Automated urine sediment erythrocyte count by microscopy (number/high power field) NONE NRG Automated urine sediment leukocyte count by microscopy (number/high power field ) [HPF] NRG Bacteria detection in urine sediment by light microscopy LARGE NRG Squamous epithelial cells detection in urine sediment by light microscopy NONE NRG Crystals detection in urine sediment by light microscopy NONE NRG Casts detection in urine sediment by light microscopy NONE NRG Mucus detection in urine sediment by light microscopy LARGE NRG Complete urinalysis with reflex to culture YES NRG Bacterial urine culture - 10/05/17 23:20 Bacterial urine culture [id number] NRG COLONY COUNT >100,000/ML NRG FTX;REPORTABLE PLUS, NRG FREE TEXT ENTRY 2 MIXED GRAM POSITIVES <10,000/ML NRG Complete urinalysis with reflex to culture - 10/08/17 18:50 Urine color determination YELLOW NRG Urine clarity determination SLIGHTLY CLOUDY NRG Urine pH measurement by test strip 6 5-9 Specific gravity of urine by test strip 1.020 1.016- 1.022 Urine protein assay by test strip, semi-quantitative 1+ NEGATIVE Urine glucose detection by automated test strip NEGATIVE NEGATIVE Erythrocytes detection in urine sediment by light microscopy 1+ NEGATIVE Urine ketones detection by automated test strip NEGATIVE NEGATIVE Urine nitrite detection by test strip NEGATIVE NEGATIVE Urine total bilirubin detection by test strip NEGATIVE NEGATIVE Urine urobilinogen measurement by automated test strip (mass/volume) NORMAL NORMAL Urine leukocyte esterase detection by dipstick 3+ NEGATIVE Automated urine sediment erythrocyte count by microscopy (number/high power field) [HPF] NRG Automated urine sediment leukocyte count by microscopy (number/high power field ) TNTC NRG Bacteria detection in urine sediment by light microscopy LARGE NRG Crystals detection in urine sediment by light microscopy NONE NRG Casts detection in urine sediment by light microscopy NONE NRG Mucus detection in urine sediment by light microscopy NEGATIVE NRG Complete urinalysis with reflex to culture YES NRG Other elements identification in urine sediment by light microscopy FEW SPERM NRG Bacterial urine culture - 10/08/17 18:50 Bacterial urine culture [id number] NRG COLONY COUNT >100,000/ML NRG FTX;REPORTABLE PLUS, NRG FREE TEXT ENTRY 2 MIXED GRAM POSITIVES <10,000/ML NRG Encounters ACCT No. Visit Date/Time Discharge Status Pt. Type Provider Facility Loc./Unit Complaint [id number] 08/16/2017 23:20:00 08/17/2017 00:46:00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
[2017-10-11] MEDS ORDERED: CATHETER FLUSH 10 ML SYR IV PRN (06:30)
[2017-10-11] MEDS ORDERED: MINERAL OIL CONCENTRATE 99.9% 15 ML UDC TOP PRN (06:30)
--- NOTE | 2017-10-11 07:07 | History & Physical-OB ---
OB - Chief Complaint & HPI Date/Time Date of Admission: Date of Admission: Oct 11, 2017 at 05:56 Time Seen by Provider: 07:10 Chief Complaint/History OB-Reason for Admission/Chief: Induction of Labor Hx : 2 Hx Para: 1 Expected Date of Delivery: Oct 16, 2017 Gestational Age in Weeks: 39 Gestational Age in Days: 2 Indication for induction: history of rapid labor Admission Nurse Assessment Rev: Yes History of Labs GBS negative Allergies and Home Medications Allergies Coded Allergies: No Known Allergies (Verified Allergy, Unknown, 06/22/14) Home Medications Ferrous Sulfate 325 Mg Tablet, 325 MG PO DAILY, (Reported) Vit #108/Iron/FA 1 Each Tablet, 1 TAB PO DAILY, (Reported) OB - History Hx of Present Care: Yes Ultrasounds: Normal mid trimester US Obstetrical Complications: None Medical Complications: None Delivery History Hx Blood Disorders: No Adverse Rxn to Tranfusion: No Patient Past Medical History no chronic medical problems Social History/Family History HIV/AIDS: No Sexually Transmitted Disease: No Immunizations Hepatitis B: Yes Tetanus Booster (TDap): Less than 5yrs Date of Influenza Vaccine: Aug 08, 2017 OB - Admission Exam Physical Exam HEENT: Moist Membranes Heart: Rhythm Normal Lungs: Clear Abdomen: Gravid Cervical Dilatation: 4cm Effacement: 50% Station: -2 Membranes: Intact Heart Rate: 140's Accelerations: Accelerations Present Short Term Variability: Present Contractions on Admission: >10 Minutes Apart Intensity: Mild Wesley Scoring Tool (Modified) Dilation (cm): 3-4cm (2) Effacement (%): 31-51% (1) Descent/Station: -2 (1) Cervix Consistency: Soft (2) Cervix Position: Middle/Mid-Position (1) Add 1 point for: Each previous vaginal delivery (1) Wesley Score: 8 OB - Assessment/Plan/Diagnosis Assessment Assessment: induction of labor Plan Plan: Induction Induction Method: KAELYN HANNON MD Oct 11, 2017 07:07
[2017-10-11] MEDS: D5 LR IV SOLUTION 1,000 ML IV SCH ×2 (07:38→13:53)
[2017-10-11 07:41] LABS: BASOPHILS % (AUTO) 0 % (0-10); EOSINOPHILS # (AUTO) 0.1 10^3/uL (0.0-0.3); EOSINOPHILS % (AUTO) 1 % (0-10); HEMATOCRIT 34 % (35-52); HEMOGLOBIN 10.9 G/DL (11.5-16.0); LYMPHOCYTES # (AUTO) 1.8 X 10^3 (1.0-4.0); LYMPHOCYTES % (AUTO) 19 % (12-44); MEAN CORPUSCULAR HEMOGLOBIN 27 PG (25-34); MEAN CORPUSCULAR HGB CONC 32 G/DL (32-36); MEAN CORPUSCULAR VOLUME 83 FL (80-99); MONOCYTES # (AUTO) 0.6 X 10^3 (0.0-1.0); MONOCYTES % (AUTO) 7 % (0-12); NEUTROPHILS # (AUTO) 6.7 X 10^3 (1.8-7.8); NEUTROPHILS % (AUTO) 73 % (42-75); PLATELET COUNT 274 10^3/uL (130-400); RED BLOOD COUNT 4.07 10^6/uL (4.35-5.85); RED CELL DISTRIBUTION WIDTH 15.2 % (10.0-14.5); WHITE BLOOD COUNT 9.2 10^3/uL (4.3-11.0)
[2017-10-11] MEDS ORDERED: SUFENTA 0.6MCG/ML BUPIVA 0.125 100 ML ONE ×2 (08:27→10:00)
[2017-10-11] MEDS ORDERED: INFLUENZA TRIvalent 2017-2018 0.5 ML/45 MCG SYR IM ONE (08:45)
[2017-10-11] MEDS ORDERED: OXYTOCIN/NORMAL SALINE 500 ML IV SCH ×2 (09:05→17:07)
[2017-10-11] MEDS ORDERED: OXYTOCIN/NORMAL SALINE 500 ML IV ONE (09:09)
[2017-10-11] MEDS ORDERED: LACTATED RINGERS 1,000 ML IV SCH (10:05)
[2017-10-11] MEDS ORDERED: METOCLOPRAMIDE INJ 10 MG/2 ML (REGLAN) IV PRN (10:15)
[2017-10-11] MEDS ORDERED: ONDANSETRON 4 MG/2 ML (SDV) Z0FRAN IV PRN (10:15)
[2017-10-11] MEDS ORDERED: NALOXONE 0.4 MG/ML 1 ML (NARCAN) VIAL IV PRN ×2 (10:15)
[2017-10-11] MEDS ORDERED: diphenhydrAMINE 50 MG/ML INJ (BENADRYL) IV PRN (10:15)
[2017-10-11] MEDS ORDERED: EPIDURAL (SUFENTA 0.6MCG/ML BUPIVA 0.125%) 100 ML BAG EPI SCH (10:15)
--- NOTE | 2017-10-11 17:12 | OB Labor & Delivery Record ---
L&D History Date of Service Date of Service: Oct 11, 2017 History Expected Date of Delivery: Oct 16, 2017 Gestational Age in Weeks: 39 Hx : 2 Hx Para: 1 Complications Events: Routine care Operative Indications (Cesarea: N/A-Vaginal Delivery Intrapartal Events: None L&D Stage1 Stage One Onset of Labor - Date: Oct 11, 2017 Onset of Labor - Time: 07:40 Monitors and Tracing Monitor Mode: Internal Heart Rate: 130 Monitor Accelerations: Uniform Monitor Decelerations: Variable Station: -2 Senior Care Variability: Average (6-10) Short Term Variability: Present Presentation: Vertex Vital Signs VS - Last 72 Hours, by Label 10/11/17 10/11/17 10/11/17 10/11/17 08:00 09:00 09:45 10:00 Temp 98.0 98.1 Pulse 86 93 95 91 Resp 16 16 B/P (MAP) 120/85 (97) 124/80 (95) 139/90 (106) 123/73 (90) Pulse Ox 99 97 O2 Delivery Room Air Room Air 10/11/17 10/11/17 10/11/17 10/11/17 10:03 10:06 10:10 10:13 Pulse 98 93 102 87 B/P (MAP) 123/76 (92) 125/77 (93) 113/70 (84) 107/60 (76) Pulse Ox 98 98 97 O2 Delivery Room Air Room Air Room Air Room Air 10/11/17 10/11/17 10/11/17 10/11/17 10:16 10:19 10:21 10:30 Pulse 93 77 74 103 B/P (MAP) 91/52 (65) 98/51 (67) 114/66 (82) 121/81 (94) O2 Delivery Room Air Room Air Room Air Room Air 10/11/17 10/11/17 10/11/17 10/11/17 10:35 10:40 10:45 11:05 Pulse 97 96 88 98 Resp 16 B/P (MAP) 114/67 (83) 110/72 (85) 106/75 (85) 125/66 (85) O2 Delivery Room Air Room Air Room Air Room Air 10/11/17 10/11/17 10/11/17 10/11/17 11:20 11:35 11:50 12:05 Pulse 88 100 97 88 B/P (MAP) 126/73 (90) 119/73 (88) 114/67 (83) 121/80 (94) O2 Delivery Room Air Room Air Room Air Room Air 10/11/17 10/11/1718 10/11/17 12:20 12:35 12:50 13:05 Pulse 85 93 83 86 B/P (MAP) 124/84 (97) 123/81 (95) 126/82 (97) 123/76 (92) O2 Delivery Room Air Room Air Room Air Room Air Signs of Distress by FHT Signs of Distress no Rupture of Membranes Spontaneous Ruture of Membrane: No Amniotic Membrane Rupture Time: 0732 Amniotic Membrane Fluid Desc.: Clear L&D Stage2 Stage Two Stage II Date: Oct 11, 2017 Stage II Time: 15:20 Monitors and Tracing Monitor Mode: Internal Heart Rate: 130 Monitor Accelerations: Uniform Monitor Decelerations: Variable Grain Combiner Variability: Average (6-10) Short Term Variability: Present Position: Left Occiput Anterior Presentation: Vertex Signs of Distress by FHT Signs of Distress no Cord Descript/Complications Cord Vessel Description: 3 Vessels Delivery Type Infant Delivery Method: Spontaneous Vaginal Anterior Shoulder: Left Episiotomy/Perineal Laceration Laceraction(s)/Extensions: Yes Episiotomy Description: Midline, 3rd degree Sutures Used: Vicryl Degree (describe repair) 3rd degree repaired with 3-0 vicryl Condition of Delivery 1 minute Comment: 8 5 minute Comment: 9 Condition of Condition of : Living Exam: No Observed Abnormalities Resuscitation Resuscitation: N/A - Spontaneous Resp L&D Stage3 Stage Three Stage III Date: Oct 11, 2017 Stage III Time: 15:24 Pictocin Pitocin Administration mu/min: 14 Pitocin ml/hr: 14 Placenta Delivery Placenta Delivery: Spontaneous Delivery Summary Summary Estimated blood loss (mL): 250 Condition of Delivery Examined: Cervix Examined Post Hemorrhage: No KAELYN GUTIERREZ MD Oct 11, 2017 17:12
[2017-10-11] MEDS ORDERED: BENZOCAINE/MENTHOL (DERMOPLAST) 56 ML CAN TP PRN (17:15)
[2017-10-11] MEDS ORDERED: HYDROcodone/APAP 5 MG/325 MG (LORTAB) TAB PO PRN (17:15)
[2017-10-11] MEDS ORDERED: MEASLES,MUMPS,RUBELLA 1 EA INJ SQ ONE (17:15)
[2017-10-11] MEDS ORDERED: WITCH HAZEL(TUCKS) 40 EA JAR TOP PRN (17:15)
[2017-10-11] MEDS ORDERED: TETANUS,DIPTH,PERTUSS P/F (BOOSTRIX) 0.5 ML VIAL IM ONE (17:15)
[2017-10-11] MEDS: IBUPROFEN 600 MG (MOTRIN) TAB PO SCH ×2 (18:07→23:34)
[2017-10-11] MEDS ORDERED: CATHETER FLUSH 10 ML SYR IV SCH (22:00)
[2017-10-12] VITALS: BP 104/76
[2017-10-12 03:58] VITALS: BP 126/81
[2017-10-12] MEDS: IBUPROFEN 600 MG (MOTRIN) TAB PO SCH ×3 (05:50→17:55)
[2017-10-12 06:12] LABS: BASOPHILS % (AUTO) 0 % (0-10); EOSINOPHILS # (AUTO) 0.1 10^3/uL (0.0-0.3); EOSINOPHILS % (AUTO) 1 % (0-10); HEMATOCRIT 25 % (35-52); HEMOGLOBIN 7.9 G/DL (11.5-16.0); LYMPHOCYTES # (AUTO) 2.5 X 10^3 (1.0-4.0); LYMPHOCYTES % (AUTO) 23 % (12-44); MEAN CORPUSCULAR HEMOGLOBIN 27 PG (25-34); MEAN CORPUSCULAR HGB CONC 32 G/DL (32-36); MEAN CORPUSCULAR VOLUME 84 FL (80-99); MEAN PLATELET VOLUME 11.1 FL (7.4-10.4); MONOCYTES # (AUTO) 0.7 X 10^3 (0.0-1.0); MONOCYTES % (AUTO) 7 % (0-12); NEUTROPHILS # (AUTO) 7.4 X 10^3 (1.8-7.8); NEUTROPHILS % (AUTO) 69 % (42-75); PLATELET COUNT 236 10^3/uL (130-400); RED BLOOD COUNT 2.94 10^6/uL (4.35-5.85); WHITE BLOOD COUNT 10.7 10^3/uL (4.3-11.0)
[2017-10-12 10:20] VITALS: BP 129/78
--- NOTE | 2017-10-12 14:33 | Anesthesia-Regional Post-Op ---
Regional Patient Condition Mental Status: Alert, Oriented x3 Circulation: Same as Pre-Op Headache: Absent Sensation: Full Recovery Motor Block: Absent Post Op Complications Complications None Follow Up Care/Instructions Patient Instructions None needed. Anesthesia/Patient Condition Patient is doing well, no complaints, stable vital signs, no apparent adverse anesthesia problems. No complications reported per nursing. OBI ROJAS CRNA Oct 12, 2017 14:33
[2017-10-12 15:33] VITALS: BP 133/85
--- NOTE | 2017-10-12 17:02 | Discharge Summary ---
Diagnosis/Chief Complaint Date of Admission Oct 11, 2017 at 05:56 Date of Discharge october 12, 2017 Discharge Date: Oct 12, 2017 Discharge Time: 17:00 Admission Diagnosis Admission Diagnosis 1. Intrauterine at 39 weeks Discharge Diagnosis 1. Intrauterine at 39 weeks 2 Anemia from acute blood loss at delivery Reason Hospital Visit 22-year-old 2 now term 2 female who initially presented to during the morning of October 11, 2017 for induction of labor. Her due date was noted to be October 16, 2017. Her care was essentially unremarkable. Discharge Summary-OBS Procedures 1 Epidural, per anesthesia 2 Spontaneous vaginal delivery 3 Repair of third-degree perineal laceration beyond the midline episiotomy Discharge Physical Examination Allergies: Coded Allergies: No Known Allergies (Verified Allergy, Unknown, 06/22/14) Vitals & I&Os Vital Signs Date Time Temp Pulse Resp B/P (MAP) Pulse Ox O2 Delivery O2 Flow Rate FiO2 10/12/17 15:33 98.8 93 18 133/85 (101) 99 Room Air General Appearance: No Acute Distress HEENT: Mucous Memb Moist/Moqu[place] Respiratory: Clear to Auscultation Cardiovascular: Regular Rate Abdominal: Soft (with uterus firm) Hospital Course following admission patient underwent artificial rupture of membranes with placement of scalp electrode. She required low-dose Pitocin augmentation. Ultimately she went on to completion and delivered a term viable female with Apgars f 8 at 1 minute and 9 at 5 minutes. See labor and delivery summary for full details. Following delivery patient underwent routine care orders. She was noted to have a hemoglobin 7.9 in the morning of October 12. Hemoglobin initial 10.9. Patient was asymptomatic with regards to any dizziness. She tolerated regular diet and was ambulatory without complaints. She tolerated breast- feeding her . She was felt ready for dismissal during the afternoon of October 12, 2017 Discharge Instructions to patient/family Please see electronic discharge instructions given to patient. Discharge Medications Reviewed and agree with Discharge Medication list on patient's Discharge Instruction sheet Clinical Quality Measures DVT/VTE Risk/Contraindication: Risk Factor Score Per Nursin RFS Level Per Nursing on Admit: 1=Low/No VTE PPX KAELYN GUTIERREZ MD Oct 12, 2017 17:02
[2017-10-12] MEDS ORDERED: IBUP-1773 PO (17:03)
--- NOTE | 2017-10-12 17:04 | Discharge Inst-Women's Service ---
Discharge Inst-Women's Serv Depart Medication/Instructions New, Converted or Re-Newed RX: Transmitted to Pharmacy Consults/Follow Up Additional Follow Up: Yes (with Dr Beth in 6 weeks.) Activity Activity: Activity as Tolerated Driving Instructions: You May Drive Nothing Inside Vagina: No [place] (for 6 weeks.) Diet Discharge Diet: Regular Diet Return to The Hospital For: as below Symptoms to Report to : Bleeding Excessive, Pain Increased, Constipation( Persistant), Fever Over 101 Degrees F, Vaginal Discharge KAELYN Conde MD Oct 12, 2017 17:04
[2017-10-12] MEDS ORDERED: INFLUENZA TRIvalent 2017-2018 0.5 ML/45 MCG SYR IM ONE (17:47)
[2017-10-12] MEDS ORDERED: TETANUS,DIPTH,PERTUSS P/F (BOOSTRIX) 0.5 ML VIAL IM ONE (17:47)
== END 2017-10-12 20:15 | disposition home or self-care (01) | DRG 775 ==
LOC: LDRP 05:56
PROVIDERS: ADMIT Family Medicine; ATTEND Family Medicine
PROC: 0W8NXZZ Division of Female Perineum, External Approach (ICD-10-PCS; principal; 2017-10-11)
PROC: 10E0XZZ Delivery of Products of Conception, External Approach (ICD-10-PCS; 2017-10-11)
PROC: 10907ZC Drainage of Amniotic Fluid, Therapeutic from Products of Conception, Via Natural or Artificial Opening (ICD-10-PCS; 2017-10-11)
DX: O90.81 Anemia of the puerperium (principal); D62 Acute posthemorrhagic anemia; Z3A.39 39 weeks gestation of pregnancy; Z37.0 Single live birth; Z23 Encounter for immunization
CPT/HCPCS: 36415; 85025; 86850; 86900; 86901; 90715

== ENCOUNTER → 2018-10-22 | Outpatient (CLI) | payer MEDICAID ==
--- NOTE | 2018-10-22 15:09 | Diagnostic Imaging Report ---
PROCEDURE: US OB SINGLE FETUS <14 WKS. TECHNIQUE: Multiple Real-time grayscale images were obtained over the gravid uterus in various projections. INDICATION: dating. FINDINGS: There is an intrauterine gestational sac containing a pole. The crown/rump length measurement is 10 mm, consistent with a 7 week 1 day gestation. The heart rate was recorded at 146 BPM. The gestational sac shape is within normal limits. No durga-gestational sac hemorrhage is seen. The ovaries are unremarkable. No adnexal mass or free fluid is seen. IMPRESSION: Single live IUP of 7 weeks 1 day gestational age. The estimated date of confinement sonographically is 06/09/2019. Dictated by: Dictated on workstation # [id number]
== END ==
LOC: RAD 14:30
PROVIDERS: ATTEND Family Medicine
DX: Z34.91 Encounter for supervision of normal pregnancy, unspecified, first trimester (principal); Z3A.01 Less than 8 weeks gestation of pregnancy
CPT/HCPCS: 76801

== ENCOUNTER → 2019-01-15 | Outpatient (CLI) | payer MEDICAID ==
--- NOTE | 2019-01-15 13:44 | Diagnostic Imaging Report ---
INDICATION: survey. TECHNIQUE: Multiple real-time grayscale images were obtained over the gravid uterus. COMPARISON: 10/12/2018. FINDINGS: The previous OB ultrasound exam of 10/12/2018 noted a single live intrauterine of approximately 7 weeks 1 day gestation +/- 1 week. On this exam, the fetus is again visualized. The fetus is cephalic in presentation. heart motion was noted and a rate of 153 bpm was recorded. There are no abnormalities identified, but the four-chamber heart view is less than optimal. I would recommend that a short-term (2-4 weeks) follow-up exam be performed for further evaluation. The placenta is posterior and low lying and there may be a marginal previa. The position of the placenta could also be further evaluated on the follow-up exam. The amniotic fluid volume is within normal limits. The cervix is identified and measures 5.5 cm in length. The growth parameters are fairly uniform and have progressed as expected since the prior exam. IMPRESSION: 1. There is a single live fetus of approximately 19 weeks 2 days gestation +/- 1 week. The EDC remains June 09, 2019. 2. There are no abnormalities identified, but the four-chamber heart is not well visualized. A short-term (2-4 weeks) follow-up exam will be recommended for further evaluation of the heart. The questionable marginal posterior placental previa could also be further evaluated on the follow-up exam. 3. The growth parameters have progressed as expected since the prior study. Biometrical measurements are as follows: Biparietal 3.91 cm, age 18 weeks 0 days. Head circumference 15.57 cm, age 18 weeks 4 days. Abdominal circumference 12.94 cm, age 18 weeks 4 days. Femur length 2.86 cm, age 18 weeks 6 days. Sonographic estimate age: 18 weeks 4 days. Sonographic estimated date of delivery: 06/09/19. Estimated Weight: 248 gm (+/- 36 gm). LMP percentile: 13%. heart rate: 153 beats per minute. number: 1 of 1. Dictated by: Dictated on workstation # [id number]
== END ==
LOC: RAD 09:35
PROVIDERS: ATTEND Family Medicine
DX: Z36.89 Encounter for other specified antenatal screening (principal); Z3A.19 19 weeks gestation of pregnancy
CPT/HCPCS: 76805

== ENCOUNTER → 2019-01-18 | Outpatient (CLI) | payer MEDICAID ==
[~2019-01-18] MED LIST changes: -PREN-115 PO; +PRENATAL ONE T1 EAC1 PO
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
== END ==
LOC: RAD 11:05
PROVIDERS: ATTEND Family Medicine
DX: O9A.212 Injury, poisoning and certain other consequences of external causes complicating pregnancy, second trimester (principal); T14.90XA Injury, unspecified, initial encounter; Z3A.00 Weeks of gestation of pregnancy not specified
CPT/HCPCS: 76815

== ENCOUNTER → 2019-02-22 | Outpatient (CLI) | payer MEDICAID ==
--- NOTE | 2019-02-22 12:06 | Diagnostic Imaging Report ---
INDICATION: Followup four-chambered heart view and placenta. TECHNIQUE: Multiple real-time grayscale images were obtained over the gravid uterus. COMPARISON: 01/15/2019. FINDINGS: There is a single live fetus in a cephalic presentation. heart rate was recorded at 160 beats per minute. Placenta is posterior. Amniotic fluid volume appears normal. Four-chambered heart view is visualized on today's study. IMPRESSION: Unremarkable limited obstetrical ultrasound. Dictated by: Dictated on workstation # [id number]
== END ==
LOC: RAD 10:39
PROVIDERS: ATTEND Family Medicine
DX: Z34.90 Encounter for supervision of normal pregnancy, unspecified, unspecified trimester (principal); Z3A.00 Weeks of gestation of pregnancy not specified
CPT/HCPCS: 76816

== ENCOUNTER → 2020-12-07 | Outpatient (CLI) | payer MEDICAID ==
[~2020-12-07] MED LIST changes: +IBUP-844 PO
--- NOTE | 2020-12-07 11:20 | Diagnostic Imaging Report ---
PROCEDURE: US OB SINGLE FETUS <14 WKS. TECHNIQUE: Multiple real-time grayscale images were obtained over the gravid uterus in various projections. INDICATION: dating. There is a single live IUP approximately 9 weeks 3 days gestational age. heart rate was recorded at 172 bpm. A small perigestational sac hemorrhage is noted measuring 17 mm x 14 mm. The adnexal evaluation demonstrates a 3 cm x 3.6 cm right ovarian cyst. Left ovary is unremarkable. There is no free fluid. IMPRESSION: 1. Single live IUP 9 weeks 3 days gestational age with estimated of confinement sonographically of 07/09/2021. There is a small subchorionic bleed. 2. Right ovarian cyst. Dictated by: Dictated on workstation # [id number]
== END ==
LOC: RAD 09:45
PROVIDERS: ATTEND Family Medicine
DX: Z34.91 Encounter for supervision of normal pregnancy, unspecified, first trimester (principal); Z3A.09 9 weeks gestation of pregnancy; N83.201 Unspecified ovarian cyst, right side
CPT/HCPCS: 76801

== ENCOUNTER → 2021-02-09 | Outpatient (CLI) | payer MEDICAID ==
--- NOTE | 2021-02-09 14:26 | Diagnostic Imaging Report ---
INDICATION: survey. TECHNIQUE: Multiple Real-time grayscale images were obtained over the gravid uterus. COMPARISON: 12/07/2020. FINDINGS: The previous ultrasound exam of 12/07/2020 noted a single live intrauterine of approximately 9 weeks 3 days gestation. The EDC was 07/09/2021. On this study, the fetus is again evident. The fetus is in variable presentation. heart motion was noted and a rate of 149 BPM was recorded. There are no abnormalities identified. The placenta is posterior and there appears to be a partial previa. I would recommend that a short-term (6-8 week) followup exam be performed for further study. The cervix was identified and measures 8.6 cm in length. The amniotic fluid volume is within normal limits. The growth parameters are fairly uniform and have progressed as expected since the prior exam. The estimated weight is in the 48th percentile. Biometrical measurements are as follows: Biparietal 4.24 cm, age 18 weeks 6 days. Head circumference 15.73 cm, age 18 weeks 5 days. Abdominal circumference 13.72 cm, age 19 weeks 2 days. Femur length 2.63 cm, age 18 weeks 0 days. Sonographic estimate age: 18 weeks 5 days. Sonographic estimated date of delivery: 07/08/2021. Estimated Weight: 249 gm (+/- 36 gm). LMP percentile: 48%. heart rate: 149 beats per minute. number: 1 of 1. IMPRESSION: 1. There is a single live fetus in variable presentation at approximately 18 weeks 5 days gestation +/- 1 week. The EDC remains 07/09/2021. 2. There are no abnormalities identified. 3. The placenta is posterior and there appears to be at least a partial previa. Recommendations as above. 4. The growth parameters are fairly uniform and have progressed as expected since the prior study. Dictated by: Dictated on workstation # [id number]
== END ==
LOC: RAD 12:00
PROVIDERS: ATTEND Family Medicine
DX: O32.0XX0 Maternal care for unstable lie, not applicable or unspecified (principal); Z3A.18 18 weeks gestation of pregnancy
CPT/HCPCS: 76805

== ENCOUNTER → 2021-03-26 | Outpatient (CLI) | payer MEDICAID ==
--- NOTE | 2021-03-26 13:32 | Diagnostic Imaging Report ---
INDICATION: History of partial placenta previa TECHNIQUE: Multiple real-time grayscale images were obtained over the gravid uterus. COMPARISON: 02/22/2019 FINDINGS: Fetus currently in a cephalic presentation. Normal amount of amniotic fluid, index at 19.58 cm. The placenta is posterior without evidence for previa. The placenta tip appears to be approximately 6.5 cm proximal to the internal os. heart biometrical measurements and/or anatomic assessment not performed on this study. Rate: 156 beats per minute. Maternal adnexa not imaged. IMPRESSION: 1. Limited obstetrical sonogram demonstrates intrauterine currently in cephalic presentation. 2. The posterior placenta demonstrates no evidence for previa. 3. Upper limit amount of amniotic fluid. Dictated by: Dictated on workstation # [id number]
== END ==
LOC: RAD 09:50
PROVIDERS: ATTEND Family Medicine
DX: Z34.90 Encounter for supervision of normal pregnancy, unspecified, unspecified trimester (principal); Z3A.00 Weeks of gestation of pregnancy not specified
CPT/HCPCS: 76816

== ENCOUNTER 2021-07-06 05:45 | Inpatient (IN) | payer MEDICAID ==
[~2021-07-06] VITALS: Ht 152.4 cm; Wt 85.2 kg
[2021-07-06] VITALS (32 sets, daily range): BP systolic 74–158; BP diastolic 39–104
[2021-07-06] MEDS ORDERED: AMPICILLIN FOR IV USE 2,000 MG in WATER (STERILE) FOR INJECTION 14.8 ML IV SCH (05:49)
[2021-07-06] MEDS ORDERED: PREN-102 PO (05:54)
[2021-07-06] MEDS ORDERED: D5 LR IV SOLUTION 1,000 ML IV ONE (05:56)
[2021-07-06] MEDS ORDERED: AMPICILLIN 2,000 MG/14.8 ML (IV USE) ONE (05:56)
[2021-07-06] MEDS ORDERED: WATER (STERILE) FOR INJECTION 20 ML ONE (05:56)
[2021-07-06 06:21] LABS: BASOPHILS % (AUTO) 1 % (0-10); EOSINOPHILS # (AUTO) 0.1 10^3/uL (0.0-0.3); EOSINOPHILS % (AUTO) 1 % (0-10); HEMATOCRIT 30 % (35-52); HEMOGLOBIN 9.2 g/dL (11.5-16.0); LYMPHOCYTES # (AUTO) 2.5 10^3/uL (1.0-4.0); LYMPHOCYTES % (AUTO) 28 % (12-44); MEAN CORPUSCULAR HEMOGLOBIN 25 pg (25-34); MEAN CORPUSCULAR HGB CONC 30 g/dL (32-36); MEAN CORPUSCULAR VOLUME 82 fL (80-99); MEAN PLATELET VOLUME 10.8 fL (9.0-12.2); MONOCYTES # (AUTO) 0.6 10^3/uL (0.0-1.0); MONOCYTES % (AUTO) 7 % (0-12); NEUTROPHILS # (AUTO) 5.6 10^3/uL (1.8-7.8); NEUTROPHILS % (AUTO) 64 % (42-75); PLATELET COUNT 287 10^3/uL (130-400); WHITE BLOOD COUNT 8.8 10^3/uL (4.3-11.0)
[2021-07-06] MEDS: D5 LR IV SOLUTION 1,000 ML IV SCH ×2 (06:26→16:33)
[2021-07-06] MEDS: CATHETER FLUSH 10 ML SYR IV SCH ×2 (06:27→14:00)
--- NOTE | 2021-07-06 07:14 | History & Physical-OB ---
OB - Chief Complaint & HPI Date/Time Date of Admission: Date of Admission: Jul 06, 2021 at 05:45 Date seen by a Provider: Jul 06, 2021 Time Seen by a Provider: 06:30 Chief Complaint/History OB-Reason for Admission/Chief: Induction of Labor Hx : 5 Hx Para: 3 Expected Date of Delivery: Jul 09, 2021 Gestational Age in Weeks: 39 Gestational Age in Days: 4 Admission Nurse Assessment Rev: Yes History of Labs positive Allergies and Home Medications Allergies Coded Allergies: No Known Allergies (Verified Allergy, Unknown, 06/22/14) Patient Home Medication List Home Medication List Reviewed: Yes Vits #93/Iron Fum/FA ( Formula Tablet) 1 Each Tablet, 1 EACH PO DAILY, (Reported) Entered as Reported by: ZAIRE RODRIGUEZ on 07/06/21 0554 Last Action: New Order Discontinued Medications Ferrous Sulfate (Iron) 325 Mg Tablet, 2 TAB PO DAILY, (Reported) Discontinued Reason: No Longer Taking Entered as Reported by: CYRUS VALENCIA on 10/05/17 5632 Last Action: Discontinued Ibuprofen (Ibu) 600 Mg Tablet, 600 MG PO Q6H Discontinued Reason: No Longer Taking Prescribed by: KAELYN GUTIERREZ on 06/05/19 0804 Last Action: Discontinued OB - History Hx of Present Care: Yes Ultrasounds: No ultrasounds, Normal mid trimester US Obstetrical Complications: None Medical Complications: None Delivery History Hx Blood Disorders: No Adverse Rxn to Tranfusion: No Patient Past Medical History no chronic medical problems Immunizations Hepatitis B: Yes Tetanus Booster (TDap): Less than 5yrs Date of Influenza Vaccine: Oct 12, 2017 OB - Admission Exam Physical Exam Vitals: Vital Signs 07/06/21 06:10 Temp 36.6 Pulse 97 Resp 18 Pulse Ox 98 O2 Delivery Room Air HEENT: Moist Membranes Heart: Rhythm Normal Lungs: Clear Extremities: Normal Cervical Dilatation: 2cm Effacement: 75% Station: -3 Membranes: Intact Heart Rate: 140's Accelerations: Accelerations Present Short Term Variability: Present Contractions on Admission: >10 Minutes Apart Intensity: Mild Wesley Scoring Tool (Modified) Dilation (cm): 1-2cm (1) Effacement (%): 51-79% (2) Descent/Station: -3 (0) Cervix Consistency: Medium(1) Cervix Position: Posterior (0) Add 1 point for: Each previous vaginal delivery (1) Wesley Score: 7 Labs Laboratory Tests Test 07/06/21 06:10 Range/Units White Blood Count 8.8 4.3-11.0 10^3/uL Red Blood Count 3.71 L 3.80-5.11 10^6/uL Hemoglobin 9.2 L 11.5-16.0 g/dL Hematocrit 30 L 35-52 % Mean Corpuscular Volume 82 80-99 fL Mean Corpuscular Hemoglobin 25 25-34 pg Mean Corpuscular Hemoglobin Concent 30 L 32-36 g/dL Red Cell Distribution Width 15.7 H 10.0-14.5 % Platelet Count 287 130-400 10^3/uL Mean Platelet Volume 10.8 9.0-12.2 fL Immature Granulocyte % (Auto) 0 % Neutrophils (%) (Auto) 64 42-75 % Lymphocytes (%) (Auto) 28 12-44 % Monocytes (%) (Auto) 7 0-12 % Eosinophils (%) (Auto) 1 0-10 % Basophils (%) (Auto) 1 0-10 % Neutrophils # (Auto) 5.6 1.8-7.8 10^3/uL Lymphocytes # (Auto) 2.5 1.0-4.0 10^3/uL Monocytes # (Auto) 0.6 0.0-1.0 10^3/uL Eosinophils # (Auto) 0.1 0.0-0.3 10^3/uL Basophils # (Auto) 0.0 0.0-0.1 10^3/uL Immature Granulocyte # (Auto) 0.0 0.0-0.1 10^3/uL OB - Assessment/Plan/Diagnosis Assessment Assessment: induction of labor Admission Dx 1. IUP at 39w4d gestation 2. Maternal GBS positive Admission Status: Inpatient Order (span 2 midnights) Reason for Inpatient Admission: Induction of labor Plan Plan: Induction Induction Method: AROM Other Plan -desires epidural -pitocin as necessary -Amp protochol due to GBS positive KAELYN GUTIERREZ MD Jul 06, 2021 07:14
[2021-07-06] MEDS ORDERED: FLU QUADRIvalent (3YOA+) 60 mcg/0.5 ml 2021-22(AFLURIA) IM ONE (08:15)
[2021-07-06 09:02] LABS: BILIRUBIN,URINE NEGATIVE (NEGATIVE); CLARITY,URINE SL CLOUDY; COLOR,URINE YELLOW; GLUCOSE, URINE (UA) NEGATIVE (NEGATIVE); KETONES,URINE NEGATIVE (NEGATIVE); LEUKOCYTE ESTERASE ,URINE 2+ (NEGATIVE); NITRITE,URINE NEGATIVE (NEGATIVE); PROTEIN,URINE NEGATIVE (NEGATIVE)
[2021-07-06 09:21] LABS: BACTERIA,URINE MODERATE /HPF
[2021-07-06 09:22] LABS: AMORPHOUS SEDIMENT,UR MOD AMOR URATES /LPF; CALCIUM OXALATE CRYSTALS,UR MODERATE /LPF
[2021-07-06] MEDS: AMPICILLIN FOR IV USE 1,000 MG in WATER (STERILE) FOR INJECTION 7.4 ML IV SCH ×2 (09:46→14:00)
[2021-07-06] MEDS: OXYTOCIN PRE-MIX DRIP 500 ML IV SCH ×4 (10:17→16:49)
[2021-07-06] MEDS ORDERED: LACTATED RINGERS 1,000 ML IV ONE ×2 (10:19→17:15)
[2021-07-06] MEDS ORDERED: fentaNYL 2 mcg/ml BUPIVA 0.125 0 ML ONE (10:19)
[2021-07-06] MEDS ORDERED: LACTATED RINGERS 1,000 ML IV SCH ×2 (10:23→12:23)
[2021-07-06] MEDS ORDERED: fentaNYL INJ 100 MCG/2 ML AMP ONE (11:50)
[2021-07-06] MEDS ORDERED: diphenhydrAMINE 50 MG/ML INJ (BENADRYL) IV PRN (13:00)
[2021-07-06] MEDS ORDERED: NALOXONE 0.4 MG/ML 1 ML (NARCAN) VIAL IV PRN ×3 (13:00→16:30)
[2021-07-06] MEDS ORDERED: ONDANSETRON 4 MG/2 ML (SDV) Z0FRAN IV PRN (13:00)
[2021-07-06] MEDS ORDERED: METOCLOPRAMIDE INJ 10 MG/2 ML (REGLAN) IV PRN (13:00)
[2021-07-06] MEDS ORDERED: WITCH HAZEL(TUCKS) 40 EA JAR TOP PRN (16:30)
[2021-07-06] MEDS ORDERED: TETANUS,DIPTH,PERTUSS P/F (BOOSTRIX) 0.5 ML VIAL IM ONE (16:30)
[2021-07-06] MEDS ORDERED: BENZOCAINE/MENTHOL (DERMOPLAST) 56 ML CAN TP PRN (16:30)
[2021-07-06] MEDS ORDERED: IBUPROFEN 600 MG (MOTRIN) TAB PO ONE (16:37)
[2021-07-06] MEDS ORDERED: BENZOCAINE/MENTHOL (DERMOPLAST) 56 ML CAN TP ONE (16:37)
[2021-07-06] MEDS ORDERED: ACETAMINOPHEN 500 MG TAB (TYLENOL) ONE (16:37)
[2021-07-06] MEDS: ACETAMINOPHEN 500 MG TAB (TYLENOL) PO SCH (16:42)
[2021-07-06] MEDS: IBUPROFEN 600 MG (MOTRIN) TAB PO SCH (16:42)
--- NOTE | 2021-07-06 17:24 | OB Labor & Delivery Record ---
L&D History Date of Service Date of Service: Jul 06, 2021 History Expected Date of Delivery: Jul 09, 2021 Gestational Age in Weeks: 39 Hx : 5 Hx Para: 4 Complications Events: Routine care Operative Indications (Cesarea: N/A-Vaginal Delivery Intrapartal Events: None Other Complications GBS positive with amp protochol L&D Stage1 Stage One Onset of Labor - Date: Jul 06, 2021 Onset of Labor - Time: 06:29 Monitors and Tracing Monitor Mode: External Heart Rate: 135 Monitor Accelerations: Uniform Monitor Decelerations: None Grinder Tender Variability: Average (6-10) Short Term Variability: Present Presentation: Vertex Vital Signs VS - Last 72 Hours, by Label 07/06/21 07/06/21 07/06/21 07/06/21 06:10 07:20 08:20 09:47 Temp 36.6 35.9 36.1 36.1 Pulse 97 74 Resp 18 16 B/P (MAP) 133/76 (95) Pulse Ox 98 99 O2 Delivery Room Air Room Air 07/06/21 07/06/21 07/06/21 07/06/21 10:18 10:32 10:48 11:05 Temp 36.2 Pulse 83 82 78 82 Resp 16 16 16 16 B/P (MAP) 134/85 (101) 133/81 (98) 146/87 (106) 141/89 (106) O2 Delivery Room Air Room Air Room Air Room Air 07/06/21 07/06/21 07/06/21 07/06/21 11:19 11:33 11:48 11:57 Temp 36.0 Pulse 81 73 79 77 Resp 16 16 16 16 B/P (MAP) 153/74 (100) 146/84 (104) 158/88 (111) 153/92 (112) Pulse Ox 99 O2 Delivery Room Air Room Air Room Air Room Air 07/06/21 07/06/21 07/06/21 07/06/21 12:02 12:09 12:12 12:16 Temp 36.1 Pulse 107 94 76 58 Resp 16 16 16 16 B/P (MAP) 155/104 (121) 99/49 (66) 80/41 (54) 74/39 (51) Pulse Ox 99 99 99 97 O2 Delivery Room Air Room Air Room Air Room Air 07/06/21 07/06/21 07/06/21 07/06/21 12:20 12:23 12:26 12:32 Pulse 71 83 126 96 Resp 16 16 16 16 B/P (MAP) 96/52 (67) 113/66 (82) 108/53 (71) 110/57 (74) Pulse Ox 97 100 O2 Delivery Room Air Room Air Room Air Room Air 07/06/21 07/06/21 07/06/21 07/06/21 12:41 12:45 12:53 12:56 Pulse 106 103 98 101 Resp 16 16 16 16 B/P (MAP) 105/53 (70) 114/54 (74) 115/56 (75) 113/56 (75) O2 Delivery Room Air Room Air Room Air Room Air 07/06/21 07/06/21 07/06/21 13:03 13:22 13:37 Pulse 121 125 127 Resp 16 16 16 B/P (MAP) 124/65 (84) 128/58 (81) 130/60 (83) O2 Delivery Room Air Room Air Room Air Signs of Distress by FHT Signs of Distress overall no Rupture of Membranes Spontaneous Ruture of Membrane: No Amniotic Membrane Rupture Time: 628 Amniotic Membrane Fluid Desc.: Clear Vaginal Bleeding Description: None L&D Stage2 Stage Two Stage II Date: Jul 06, 2021 Stage II Time: 13:41 Monitors and Tracing Monitor Mode: External Heart Rate: 135 Monitor Accelerations: Uniform Monitor Decelerations: Prolonged (shortly after spinal but recovered with ephedrine) Short Term Variability: Present Position: Left Occiput Posterior Presentation: Vertex Signs of Distress by FHT Signs of Distress no Cord Descript/Complications Cord Vessel Description: 3 Vessels Delivery Type Infant Delivery Method: Spontaneous Vaginal Anterior Shoulder: Left Episiotomy/Perineal Laceration Laceraction(s)/Extensions: No Episiotomy Description: Midline Sutures Used: Vicryl Condition of Infant Delivery 1 minute Comment: 8 5 minute Comment: 8 Condition of Condition of : Living Exam: No Observed Abnormalities Resuscitation Resuscitation: N/A - Spontaneous Resp L&D Stage3 Stage Three Stage III Date: Jul 06, 2021 Stage III Time: 13:45 Pictocin Pitocin Administration mu/min: 4 Pitocin ml/hr: 4 Pitocin Administration Comment: 1057- PITOCIN INCREASED Placenta Delivery Placenta Delivery: Spontaneous Delivery Summary Summary Estimated blood loss (mL): 150 Condition of Delivery Examined: Cervix Examined Post Hemorrhage: No Intervention Required none AKELYN GUTIERREZ MD Jul 06, 2021 17:24
[2021-07-06] MEDS ORDERED: CATHETER FLUSH 10 ML SYR IV SCH (22:00)
[2021-07-07 00:23] VITALS: BP 135/96
[2021-07-07] MEDS: ACETAMINOPHEN 500 MG TAB (TYLENOL) PO SCH ×4 (00:24→17:55)
[2021-07-07] MEDS: IBUPROFEN 600 MG (MOTRIN) TAB PO SCH ×4 (00:24→17:55)
[2021-07-07] MEDS: DOCUSATE SODIUM 100 MG (COLACE) CAP PO SCH ×2 (00:24→09:50)
[2021-07-07 06:22] VITALS: BP 136/80
--- NOTE | 2021-07-07 07:20 | Discharge Summary ---
Diagnosis/Chief Complaint Date of Admission Jul 06, 2021 at 05:45 Date of Discharge July 07, 2021 Discharge Date: Jul 07, 2021 Discharge Time: 18:00 Admission Diagnosis Admission Diagnosis 1. Intrauterine at term 39 weeks 4 days 2. Anemia iron deficiency Discharge Diagnosis 1. Intrauterine at term 39 weeks 4 days 2. Anemia iron deficiency Reason Hospital Visit 26-year-old 5 now T4 A1 L4 initially presented to labor and delivery during the morning of July 06, 2021 for induction of labor. She was at 39 weeks 4 days gestation. Her GBS status was negative at 36 weeks by vaginal culture. Discharge Summary-OBS Procedures 1. Spinal per anesthesia 2. Spontaneous vaginal delivery 3. Repair of midline episiotomy Discharge Physical Examination Allergies: Coded Allergies: No Known Allergies (Verified Allergy, Unknown, 06/22/14) Vitals & I&Os Vital Signs Date Time Temp Pulse Resp B/P (MAP) Pulse Ox O2 Delivery O2 Flow Rate FiO2 07/07/21 06:22 36.9 80 16 136/80 (98) 97 Room Air General Appearance: No Acute Distress Respiratory: Clear to Auscultation Cardiovascular: Regular Rate Abdominal: Normal Bowel Sounds, Soft (with uterus firm) Hospital Course Was the Problem List Reviewed?: Yes following admission patient underwent labor course. She ultimately delivered a term viable female with Apgars of 8 at 1 minute and 8 at 5 minutes. See labor and delivery note for full details. Following delivery she underwent routine care orders. She had no complications during the remainder of hospital stay. Her initial hemoglobin was 9.2. She tolerated regular diet. She was ambulatory and had no leg pain or chest pain. She was felt ready for dismissal during the late afternoon of July 07, 2021. Pending Labs Laboratory Tests 07/07/21 07:04: White Blood Count [Pending], Red Blood Count [Pending], Hemoglobin [Pending], Hematocrit [Pending], Mean Corpuscular Volume [Pending], Mean Corpuscular Hemoglobin [Pending], Mean Corpuscular Hemoglobin Concent [Pending], Red Cell Distribution Width [Pending], Platelet Count [Pending], Mean Platelet Volume [Pending], Neutrophils (%) (Auto) [Pending], Lymphocytes (%) (Auto) [Pending], Monocytes (%) (Auto) [Pending], Eosinophils (%) (Auto) [Pending], Basophils (%) (Auto) [Pending], Neutrophils # (Auto) [Pending], Lymphocytes # (Auto) [Pending], Monocytes # (Auto) [Pending], Eosinophils # (Auto) [Pending], Basophils # (Auto) [Pending] Discharge Instructions to patient/family Please see electronic discharge instructions given to patient. Discharge Medications Reviewed and agree with Discharge Medication list on patient's Discharge Instruction sheet KAELYN GUTIERREZ MD Jul 07, 2021 07:20
[2021-07-07 07:22] LABS: BASOPHILS % (AUTO) 0 % (0-10); EOSINOPHILS # (AUTO) 0.1 10^3/uL (0.0-0.3); EOSINOPHILS % (AUTO) 1 % (0-10); HEMATOCRIT 27 % (35-52); HEMOGLOBIN 7.9 g/dL (11.5-16.0); LYMPHOCYTES # (AUTO) 2.3 10^3/uL (1.0-4.0); LYMPHOCYTES % (AUTO) 23 % (12-44); MEAN CORPUSCULAR HEMOGLOBIN 25 pg (25-34); MEAN CORPUSCULAR HGB CONC 30 g/dL (32-36); MEAN CORPUSCULAR VOLUME 83 fL (80-99); MEAN PLATELET VOLUME 11.1 fL (9.0-12.2); MONOCYTES # (AUTO) 0.5 10^3/uL (0.0-1.0); MONOCYTES % (AUTO) 5 % (0-12); NEUTROPHILS % (AUTO) 70 % (42-75); PLATELET COUNT 241 10^3/uL (130-400); WHITE BLOOD COUNT 10.1 10^3/uL (4.3-11.0)
[2021-07-07] MEDS ORDERED: FERR325T18 PO (07:22)
[2021-07-07] MEDS ORDERED: IBUP-844 PO (07:22)
--- NOTE | 2021-07-07 07:23 | Discharge Inst-Women's Service ---
Discharge Inst-Women's Serv Depart Medication/Instructions New, Converted or Re-Newed RX: Call to Patients Pharmacy ([facility]) Problems Reviewed?: Yes Consults/Follow Up Additional Follow Up: Yes (Dr Gutierrez in 6 weeks.) Activity Activity: Activity as Tolerated Driving Instructions: No Driving for 1 Week Nothing Inside Vagina: No [place] (for 6 weeks) Diet Discharge Diet: Regular Diet Return to The Hospital For: as below Symptoms to Report to : Bleeding Excessive, Fever Over 101 Degrees F, Vaginal Discharge Foul For Any Problems or Questions: Contact Your Physician KAELYN GUTIERREZ MD Jul 07, 2021 07:23
[2021-07-07 09:32] VITALS: BP 129/82
[2021-07-07 12:01] VITALS: BP 124/84
--- NOTE | 2021-07-07 13:49 | Anesthesia-Regional Post-Op ---
Regional Patient Condition Mental Status: Alert, Oriented x3 Circulation: Same as Pre-Op Headache: Absent Sensation: Full Recovery Motor Block: Absent Post Op Complications Complications None Follow Up Care/Instructions Patient Instructions None needed. Anesthesia/Patient Condition Patient is doing well, no complaints, stable vital signs, no apparent adverse anesthesia problems. No complications reported per nursing. MARLEEN CARROLL CRNA Jul 07, 2021 13:49
[2021-07-07 16:37] VITALS: BP 98/58
[2021-07-07 18:40] VITALS: BP 98/58
== END 2021-07-07 18:40 | disposition home or self-care (01) | DRG 807 ==
LOC: LDRP 05:45
PROVIDERS: ADMIT Family Medicine; ATTEND Family Medicine
PROC: 10E0XZZ Delivery of Products of Conception, External Approach (ICD-10-PCS; principal; 2021-07-06)
PROC: 0W8NXZZ Division of Female Perineum, External Approach (ICD-10-PCS; 2021-07-06)
PROC: 10907ZC Drainage of Amniotic Fluid, Therapeutic from Products of Conception, Via Natural or Artificial Opening (ICD-10-PCS; 2021-07-06)
DX: O99.824 Streptococcus B carrier state complicating childbirth (principal); Z37.0 Single live birth; Z3A.39 39 weeks gestation of pregnancy; O76 Abnormality in fetal heart rate and rhythm complicating labor and delivery; O99.02 Anemia complicating childbirth; D50.9 Iron deficiency anemia, unspecified
CPT/HCPCS: 36415; 81000; 85025; 86850; 86900; 86901; 87088; 90715